=== PATIENT | male | born 1960 | race Caucasian/White ===

== ENCOUNTER 2020-06-28 16:03 | Emergency (ER) | payer OTHER ==
--- NOTE | 2020-06-28 16:32 | ED ---
General Adult HPI - General Stated complaint: Vomiting/Confusion Time Seen by Provider: 06/28/20 16:17 Source: RN notes reviewed, old records reviewed - History of Present Illness Initial comments: 51-year-old male history of alcoholism recently new to the area who drove from [place] on Wednesday. He presents the ER today via EMS for complaints of confusion and vomiting. Patient whose sister called EMS for his complaints. When EMS arrived with an IV and the Patient and he stated that he did not need to be here months ago. Patient reports that he drinks proximally pint today. Patient denies any abdominal pain or other complaints. Denies any falls. Patient is alert and oriented 3. Review of Systems ROS Statement: Those systems with pertinent positive or pertinent negative responses have been documented in the HPI. ROS Other: All systems not noted in ROS Statement are negative. General Exam - General Exam Comments Initial Comments: Alert and oriented 59-year-old male. No acute distress. Patient is somewhat hostile. General appearance: alert, in no apparent distress Head exam: Present: atraumatic, normocephalic, normal inspection Eye exam: Present: normal appearance, PERRL, EOMI. Absent: scleral icterus, conjunctival injection, periorbital swelling ENT exam: Present: normal exam Neck exam: Present: normal inspection. Absent: tenderness, meningismus, lymphadenopathy Respiratory exam: Present: normal lung sounds bilaterally. Absent: respiratory distress, wheezes, rales, rhonchi, stridor Cardiovascular Exam: Present: regular rate, normal rhythm, normal heart sounds. Absent: systolic murmur, diastolic murmur, rubs, gallop, clicks GI/Abdominal exam: Present: soft, normal bowel sounds. Absent: distended, tenderness, guarding, rebound, rigid Extremities exam: Present: normal inspection, full ROM, normal capillary refill. Absent: tenderness, pedal edema, joint swelling, calf tenderness Back exam: Present: normal inspection Neurological exam: Present: alert, oriented X3, CN II-XII intact Psychiatric exam: Present: normal affect, normal mood Skin exam: Present: warm, dry, intact, normal color. Absent: rash Medical Decision Making - Medical Decision Making 51-year-old male presented via EMS for concern for nausea vomiting and episodes of confusion. This time Patient has no signs of neurological deficits alert and oriented 3. Able to ambulate straight line. He states he does not need to be here and anxious to be discharged. Patient was advised that he will be leaving AGAINST MEDICAL ADVICE. Meeting that he does not have any lab testing or evaluation for his suspenders symptoms that EMS brought him here. He states he otherwise feels well and wants to go home. Patient left and ripped his IV out and moods didn't know that he was given a leave AGAINST MEDICAL ADVICE and accepts the risk. Disposition Clinical Impression: Vomiting, History of ETOH abuse Disposition: Left Against Medical Advice Condition: Good Instructions (If sedation given, give patient instructions): Abuse of Alcohol (ED), Acute Nausea and Vomiting (ED) Additional Instructions: You are leaving AGAINST MEDICAL ADVICE and take the risk of worsening condition or even due to condition. Patient should stop drinking. Return to ER if any alarming signs or symptoms occur. Is patient prescribed a controlled substance at d/c from ED?: No Referrals: Nonstaff,Physician [Primary Care Provider] - 1-2 days Time of Disposition: 16:30
== END 2020-06-28 16:30 | disposition left against medical advice (07) ==
LOC: EC 16:03
DX: R11.10 Vomiting, unspecified (principal); F10.11 Alcohol abuse, in remission; F17.200 Nicotine dependence, unspecified, uncomplicated; Z53.29 Procedure and treatment not carried out because of patient's decision for other reasons
CPT/HCPCS: 99285

== ENCOUNTER 2020-06-30 16:10 | Emergency (ER) | payer OTHER ==
[2020-06-30 16:17] VITALS: TEMP 98
[2020-06-30] MEDS ORDERED: SODIUM CHLORIDE 0.9% 1,000 ML IV STA (16:45)
[2020-06-30 17:01] LABS: Basophils # (A) 0.1 k/uL (0-0.2); Basophils % (A) 1 %; Eosinophils # (A) 0.1 k/uL (0-0.7); Eosinophils % (A) 2 %; HCT 37.3 % (39.0-53.0); HGB 12.1 gm/dL (13.0-17.5); Lymphocytes # (A) 1.5 k/uL (1.0-4.8); Lymphocytes % (A) 26 %; MCH 32.2 pg (25.0-35.0); MCHC 32.5 g/dL (31.0-37.0); MCV 99.1 fL (80.0-100.0); Mean Platelet Volume 6.9; Monocytes # (A) 0.3 k/uL (0-1.0); Monocytes % (A) 5 %; Neutrophils # (A) 3.6 k/uL (1.3-7.7); Neutrophils % (A) 64 %; Platelet Count 348 k/uL (150-450); RBC 3.76 m/uL (4.30-5.90); RDW 13.5 % (11.5-15.5); WBC 5.6 k/uL (3.8-10.6)
[2020-06-30 17:13] LABS: ALT 66 U/L (4-49); AST 166 U/L (17-59); African American GFR (CKD) >90 (>60 ml/min/1.73 sqM); Albumin 3.4 g/dL (3.5-5.0); Alkaline Phosphatase 303 U/L (38-126); Anion Gap 8 mmol/L; Blood Urea Nitrogen 6 mg/dL (9-20); Carbon Dioxide 25 mmol/L (22-30); Chloride 112 mmol/L (98-107); Glucose 124 mg/dL (74-99); Lipase 164 U/L (23-300); Magnesium 1.6 mg/dL (1.6-2.3); Non-African American GFR(CKD) >90 (>60 ml/min/1.73 sqM); Phosphorus 4.8 mg/dL (2.5-4.5); Potassium 3.6 mmol/L (3.5-5.1); Sodium 145 mmol/L (137-145); Total Bilirubin 0.3 mg/dL (0.2-1.3); Total Protein 6.9 g/dL (6.3-8.2)
[2020-06-30 17:25] LABS: Alcohol 299 mg/dL
--- NOTE | 2020-06-30 18:36 | ED ---
General Adult HPI - General Chief complaint: Abdominal Pain Stated complaint: weakness-revisit Time Seen by Provider: 06/30/20 16:20 Source: patient, RN notes reviewed, old records reviewed Mode of arrival: wheelchair Limitations: no limitations - History of Present Illness Initial comments: 59-year-old male patient ED for evaluation. Before these been feeling some generalized weakness for the last 6 weeks. Reports alcohol usage. Denies any other complaints. Denies any falls or trauma. Systemic: Pt denies fatigue, fever/chills, rash. Pt denies weakness, night sweats, weight loss. Neuro: Pt denies headache, visual disturbances, syncope or pre-syncope. HEENT: Pt denies ocular discharge or irritation, otalgia, rhinorrhea, pharyngi tis or notable lymphadenopathy. Cardiopulmonary: Pt denies chest pain, SOB, heart palpitations, dyspnea on exertion. Abdominal/GI: Pt denies abdominal pain, n/v/d. : Pt denies dysuria, burning w/ urination, frequency/urgency. Denies new onset urinary or bowel incontinence. MSK: Pt denies myalgia, loss of strength or function in extremities. Neuro: Pt denies new onset weakness, paresthesias. - Related Data Allergies Allergy/AdvReac Type Severity Reaction Status Date / Time No Known Allergies Allergy Verified 06/30/20 16:17 Review of Systems ROS Statement: Those systems with pertinent positive or pertinent negative responses have been documented in the HPI. ROS Other: All systems not noted in ROS Statement are negative. Past Medical History Past Medical History: Hypertension History of Any Multi-Drug Resistant Organisms: Unobtainable Past Surgical History: Unable to Obtain Additional Past Surgical History / Comment(s): vasectomy Past Psychological History: Unable to Obtain Smoking Status: Current every day smoker Past Alcohol Use History: Daily, Heavy Past Drug Use History: None Reported General Exam - General Exam Comments Initial Comments: Constitutional: NAD, AOX3, Pt has pleasant affect. HEENT: NC/AT, trachea midline, neck supple, no lymphadenopathy. External ears appear normal, without discharge. Mucous membranes moist. Eyes PERRLA, EOM in tact. There is no scleral icterus. No pallor noted. Cardiopulmonary: RRR, no murmurs, rubs or gallops, no JVD noted. Lungs CTAB in anterior and posterior justin. No peripheral edema. Abdominal exam: Abdomen soft and non-distended. Abdomen non-tender to palpation in all 4 quadrants. Bowel sounds active in LLQ. No hepatosplenomegaly. No ecchymosis Neuro: CN II-XII grossly intact. No nuchal rigidity. No raccon eyes, no bazzi sign, no hemotympanum. No cervical spinal tenderness. MSK: . Full active ROM in upper and lower extremities, 5/5 stregnth. Limitations: no limitations Course Vital Signs 06/30/20 06/30/20 16:13 18:36 Temperature 98.0 F Pulse Rate 94 96 Respiratory 20 18 Rate Blood Pressure 126/70 130/88 O2 Sat by Pulse 98 96 Oximetry Medical Decision Making - Medical Decision Making 59-year-old male patient ED for evaluation generalized weakness. Vital signs are stable, afebrile. Physical exam negative for acute pathology. Laboratory investigations revealed elevated serum alcohol 299. AST to ALT increased. After short stay in emergency department patient became irate demanding to leave. as patient is intoxicated we indicated that he had to have a friend or relative come pick him up. Patient was recently emergency department 2 days ago for similar complaints and signed out AGAINST MEDICAL ADVICE at that time. Patient is alert and oriented 3 and able to ambulate without difficulty. Friend confirm that he will transportation home to a save location. Patient will discharge AGAINST MEDICAL ADVICE. Case discussed and pt seen by Dr. Mendoza. - Lab Data Result diagrams: 06/30/20 16:52 06/30/20 16:52 Lab Results 06/30/20 06/30/20 Range/Units 16:52 16:52 WBC 5.6 (3.8-10.6) k/uL RBC 3.76 L (4.30-5.90) m/uL Hgb 12.1 L (13.0-17.5) gm/dL Hct 37.3 L (39.0-53.0) % MCV 99.1 (80.0-100.0) fL MCH 32.2 (25.0-35.0) pg MCHC 32.5 (31.0-37.0) g/dL RDW 13.5 (11.5-15.5) % Plt Count 348 (150-450) k/uL MPV 6.9 Neutrophils % 64 % Lymphocytes % 26 % Monocytes % 5 % Eosinophils % 2 % Basophils % 1 % Neutrophils # 3.6 (1.3-7.7) k/uL Lymphocytes # 1.5 (1.0-4.8) k/uL Monocytes # 0.3 (0-1.0) k/uL Eosinophils # 0.1 (0-0.7) k/uL Basophils # 0.1 (0-0.2) k/uL Sodium 145 (137-145) mmol/L Potassium 3.6 (3.5-5.1) mmol/L Chloride 112 H (98-107) mmol/L Carbon Dioxide 25 (22-30) mmol/L Anion Gap 8 mmol/L BUN 6 L (9-20) mg/dL Creatinine 0.85 (0.66-1.25) mg/dL Est GFR (CKD-EPI)AfAm >90 (>60 ml/min/1.73 sqM) Est GFR (CKD-EPI)NonAf >90 (>60 ml/min/1.73 sqM) Glucose 124 H (74-99) mg/dL Calcium 8.0 L (8.4-10.2) mg/dL Phosphorus 4.8 H (2.5-4.5) mg/dL Magnesium 1.6 (1.6-2.3) mg/dL Total Bilirubin 0.3 (0.2-1.3) mg/dL AST 166 H (17-59) U/L ALT 66 H (4-49) U/L Alkaline Phosphatase 303 H (38-126) U/L Total Protein 6.9 (6.3-8.2) g/dL Albumin 3.4 L (3.5-5.0) g/dL Lipase 164 (23-300) U/L Serum Alcohol 299 H* mg/dL Disposition Clinical Impression: Alcohol intoxication Disposition: Left Against Medical Advice Condition: Undetermined Additional Instructions: Recommend stop drinking alcohol and avoiding substance abuse. Follow up with PCP tomorrow. Is patient prescribed a controlled substance at d/c from ED?: No Referrals: Nonstaff,Physician [Primary Care Provider] - 1-2 days Gianni Blanco MD [REFERRING] - 1-2 days Maykel Long [STAFF PHYSICIAN] - 1-2 days
[2020-06-30 18:37] VITALS: BP 130/88; PULSE 96; RESP 18
== END 2020-06-30 18:42 | disposition left against medical advice (07) ==
LOC: EC 16:10
DX: F10.129 Alcohol abuse with intoxication, unspecified (principal); Z53.29 Procedure and treatment not carried out because of patient's decision for other reasons; I10 Essential (primary) hypertension; F17.200 Nicotine dependence, unspecified, uncomplicated
CPT/HCPCS: 80053; 80320; 83690; 83735; 84100; 85025; 96360; 99284

== ENCOUNTER 2020-08-02 09:17 | Inpatient (IN) | payer OTHER ==
[2020-08-02] MEDS ORDERED: ONDANSETRON 4 MG/2 ML VIAL IVP STA (09:50)
[2020-08-02] MEDS ORDERED: SODIUM CHLORIDE 0.9% 1,000 ML IV STA (09:50)
[2020-08-02] MEDS ORDERED: cloNIDine HCL 0.2 MG TAB PO STA (09:54)
--- NOTE | 2020-08-02 10:07 | ED ---
Psych HPI - General Chief Complaint: Psychiatric Symptoms Stated Complaint: Suicidal Time Seen by Provider: 08/02/20 09:31 Source: patient Mode of arrival: ambulatory - History of Present Illness Initial Comments: Patient is a 59-year-old male presenting to the emergency Department with complaints of suicidal deviation. Patient states that over the past few weeks he was experiencing nausea, vomiting and diarrhea. Patient denies any pain at this time, he states he does not feel nauseous or have had any vomiting over the past 3 days. He complains that if he had "a bunch of pills he would've taken them", he also told triage nurse that "if he found a gun he would shoot him self." He states he is living at his parent's house, they are both . He has no further trauma house, has been sleeping in the air mattress. He states he is also take blood pressure medications but states he ran out and has not been taking them. He also admits to drinking alcohol nightly, his last drink was last night. Denies any other drug use. He denies any chest pain, no shortness of breath. No recent fever or chills. He has no further complaints at this time. Upon arrival to the ER, his blood pressure is 212/109, rest of vitals are normal. - Related Data Home Medications Medication Instructions Recorded Confirmed No Known Home Medications 08/02/20 08/02/20 Allergies Allergy/AdvReac Type Severity Reaction Status Date / Time No Known Allergies Allergy Verified 08/02/20 11:00 Review of Systems ROS Statement: Those systems with pertinent positive or pertinent negative responses have been documented in the HPI. ROS Other: All systems not noted in ROS Statement are negative. Past Medical History Past Medical History: Hypertension Additional Past Medical History / Comment(s): non-compliant with bp pills History of Any Multi-Drug Resistant Organisms: Unobtainable Past Surgical History: Unable to Obtain Additional Past Surgical History / Comment(s): vasectomy Past Psychological History: Unable to Obtain Smoking Status: Current every day smoker Past Alcohol Use History: Daily, Heavy Past Drug Use History: Marijuana General Exam - General Exam Comments Initial Comments: GENERAL: Patient is well-developed and well-nourished. Patient is nontoxic and in no acute distress. HEAD: Atraumatic, normocephalic. EYES: Pupils equal round and reactive to light, extraocular movements intact, sclera anicteric, conjunctiva are normal. Eyelids were unremarkable. ENT: TMs normal, nares patent, oropharynx clear without exudates. Moist mucous membranes. NECK: Normal range of motion, supple without lymphadenopathy or JVD. LUNGS: Unlabored respirations. Breath sounds clear to auscultation bilaterally and equal. No wheezes rales or rhonchi. HEART: Regular rate and rhythm without murmurs, rubs or gallops. ABDOMEN: Soft, nontender, normoactive bowel sounds. No guarding, no rebound. No masses appreciated. : Deferred MUSCULOSKELETAL: Normal extremities with adequate strength and normal range of motion, no pitting or edema. No clubbing or cyanosis. NEUROLOGICAL: Patient is alert and oriented x 3. Motor and sensory are also intact. Cranial nerves II through XII grossly intact. Symmetrical smile. Normal speech, normal gait. PSYCH: Normal mood, normal affect. SKIN: Warm, Dry, normal turgor, no rashes or lesions noted. Limitations: no limitations Course Vital Signs 08/02/20 08/02/20 09:20 12:50 Temperature 98.0 F Pulse Rate 105 H 96 Respiratory 18 18 Rate Blood Pressure 212/109 158/91 O2 Sat by Pulse 99 98 Oximetry Medical Decision Making - Medical Decision Making Patient is a 59-year-old male here for suicidal ideations as well as nausea and vomiting over the past couple weeks. Patient is hypertensive on arrival, rest of vital signs are normal. He states he stopped taking his blood pressure medication. Patient's labs show potassium 3.1, creatinine 0.61, liver enzymes a re slightly bumped. Urine is normal, tox screen is positive for methadone and phentermine's, serum alcohol was 96. Patient was evaluated by EPS. Positive suicidal plans. Patient will be admitted to the psych unit. We will start him back on his blood pressure medication. Patient was given fluids for dehydration. - Lab Data Result diagrams: 08/02/20 10:05 08/02/20 10:05 Lab Results 08/02/20 08/02/20 08/02/20 Range/Units 10:05 10:05 10:53 WBC 7.0 (3.8-10.6) k/uL RBC 3.62 L (4.30-5.90) m/uL Hgb 11.7 L (13.0-17.5) gm/dL Hct 35.1 L (39.0-53.0) % MCV 97.0 (80.0-100.0) fL MCH 32.4 (25.0-35.0) pg MCHC 33.4 (31.0-37.0) g/dL RDW 12.7 (11.5-15.5) % Plt Count 209 (150-450) k/uL MPV 7.7 Neutrophils % 73 % Lymphocytes % 15 % Monocytes % 7 % Eosinophils % 2 % Basophils % 1 % Neutrophils # 5.1 (1.3-7.7) k/uL Lymphocytes # 1.1 (1.0-4.8) k/uL Monocytes # 0.5 (0-1.0) k/uL Eosinophils # 0.2 (0-0.7) k/uL Basophils # 0.1 (0-0.2) k/uL Sodium 137 (137-145) mmol/L Potassium 3.1 L (3.5-5.1) mmol/L Chloride 101 (98-107) mmol/L Carbon Dioxide 27 (22-30) mmol/L Anion Gap 9 mmol/L BUN 6 L (9-20) mg/dL Creatinine 0.61 L (0.66-1.25) mg/dL Est GFR (CKD-EPI)AfAm >90 (>60 ml/min/1.73 sqM) Est GFR (CKD-EPI)NonAf >90 (>60 ml/min/1.73 sqM) Glucose 110 H (74-99) mg/dL Calcium 8.2 L (8.4-10.2) mg/dL Total Bilirubin 0.7 (0.2-1.3) mg/dL AST 110 H (17-59) U/L ALT 58 H (4-49) U/L Alkaline Phosphatase 256 H (38-126) U/L Total Protein 7.1 (6.3-8.2) g/dL Albumin 3.6 (3.5-5.0) g/dL Urine Color Light Yellow Urine Appearance Clear (Clear) Urine pH 6.0 (5.0-8.0) Ur Specific [place] 1.003 (1.001-1.035) Urine Protein Negative (Negative) Urine Glucose (UA) Negative (Negative) Urine Ketones Negative (Negative) Urine Blood Negative (Negative) Urine Nitrite Negative (Negative) Urine Bilirubin Negative (Negative) Urine Urobilinogen <2.0 (<2.0) mg/dL Ur Leukocyte Esterase Negative (Negative) Urine Opiates Screen (NotDetected) Ur Oxycodone Screen (NotDetected) Urine Methadone Screen (NotDetected) Ur Propoxyphene Screen (NotDetected) Ur Barbiturates Screen (NotDetected) U Tricyclic Antidepress (NotDetected) Ur Phencyclidine Scrn (NotDetected) Ur Amphetamines Screen (NotDetected) U Methamphetamines Scrn (NotDetected) U Benzodiazepines Scrn (NotDetected) Urine Cocaine Screen (NotDetected) U Marijuana (THC) Screen (NotDetected) Serum Alcohol 96 mg/dL 08/02/20 Range/Units 10:53 WBC (3.8-10.6) k/uL RBC (4.30-5.90) m/uL Hgb (13.0-17.5) gm/dL Hct (39.0-53.0) % MCV (80.0-100.0) fL MCH (25.0-35.0) pg MCHC (31.0-37.0) g/dL RDW (11.5-15.5) % Plt Count (150-450) k/uL MPV Neutrophils % % Lymphocytes % % Monocytes % % Eosinophils % % Basophils % % Neutrophils # (1.3-7.7) k/uL Lymphocytes # (1.0-4.8) k/uL Monocytes # (0-1.0) k/uL Eosinophils # (0-0.7) k/uL Basophils # (0-0.2) k/uL Sodium (137-145) mmol/L Potassium (3.5-5.1) mmol/L Chloride (98-107) mmol/L Carbon Dioxide (22-30) mmol/L Anion Gap mmol/L BUN (9-20) mg/dL Creatinine (0.66-1.25) mg/dL Est GFR (CKD-EPI)AfAm (>60 ml/min/1.73 sqM) Est GFR (CKD-EPI)NonAf (>60 ml/min/1.73 sqM) Glucose (74-99) mg/dL Calcium (8.4-10.2) mg/dL Total Bilirubin (0.2-1.3) mg/dL AST (17-59) U/L ALT (4-49) U/L Alkaline Phosphatase (38-126) U/L Total Protein (6.3-8.2) g/dL Albumin (3.5-5.0) g/dL Urine Color Urine Appearance (Clear) Urine pH (5.0-8.0) Ur Specific [place] (1.001-1.035) Urine Protein (Negative) Urine Glucose (UA) (Negative) Urine Ketones (Negative) Urine Blood (Negative) Urine Nitrite (Negative) Urine Bilirubin (Negative) Urine Urobilinogen (<2.0) mg/dL Ur Leukocyte Esterase (Negative) Urine Opiates Screen Not Detected (NotDetected) Ur Oxycodone Screen Not Detected (NotDetected) Urine Methadone Screen Detected H (NotDetected) Ur Propoxyphene Screen Not Detected (NotDetected) Ur Barbiturates Screen Not Detected (NotDetected) U Tricyclic Antidepress Not Detected (NotDetected) Ur Phencyclidine Scrn Not Detected (NotDetected) Ur Amphetamines Screen Detected H (NotDetected) U Methamphetamines Scrn Not Detected (NotDetected) U Benzodiazepines Scrn Not Detected (NotDetected) Urine Cocaine Screen Not Detected (NotDetected) U Marijuana (THC) Screen Not Detected (NotDetected) Serum Alcohol mg/dL Disposition Clinical Impression: Suicidal ideation, Dehydration Disposition: TRANSFER TO PSYCH HOSP/UNIT Condition: Stable Referrals: None,Stated [Primary Care Provider] - 1-2 days Decision Date: 08/02/20 Decision Time: 13:25
[2020-08-02 10:12] LABS: Basophils # (A) 0.1 k/uL (0-0.2); Basophils % (A) 1 %; Eosinophils # (A) 0.2 k/uL (0-0.7); Eosinophils % (A) 2 %; HCT 35.1 % (39.0-53.0); HGB 11.7 gm/dL (13.0-17.5); Lymphocytes # (A) 1.1 k/uL (1.0-4.8); Lymphocytes % (A) 15 %; MCH 32.4 pg (25.0-35.0); MCHC 33.4 g/dL (31.0-37.0); Mean Platelet Volume 7.7; Monocytes # (A) 0.5 k/uL (0-1.0); Monocytes % (A) 7 %; Neutrophils # (A) 5.1 k/uL (1.3-7.7); Neutrophils % (A) 73 %; Platelet Count 209 k/uL (150-450); RBC 3.62 m/uL (4.30-5.90); RDW 12.7 % (11.5-15.5)
[2020-08-02] MEDS ORDERED: LORazepam 2 MG/ML INJ IV STA (10:19)
[2020-08-02 10:37] LABS: ALT 58 U/L (4-49); AST 110 U/L (17-59); African American GFR (CKD) >90 (>60 ml/min/1.73 sqM); Albumin 3.6 g/dL (3.5-5.0); Alkaline Phosphatase 256 U/L (38-126); Anion Gap 9 mmol/L; Blood Urea Nitrogen 6 mg/dL (9-20); Calcium 8.2 mg/dL (8.4-10.2); Carbon Dioxide 27 mmol/L (22-30); Chloride 101 mmol/L (98-107); Glucose 110 mg/dL (74-99); Non-African American GFR(CKD) >90 (>60 ml/min/1.73 sqM); Potassium 3.1 mmol/L (3.5-5.1); Sodium 137 mmol/L (137-145); Total Bilirubin 0.7 mg/dL (0.2-1.3); Total Protein 7.1 g/dL (6.3-8.2)
[2020-08-02 10:52] LABS: Alcohol 96 mg/dL
[2020-08-02 11:06] LABS: Appearance,Urine Clear (Clear); Bilirubin,Urine Negative (Negative); Blood,Urine Negative (Negative); Color,Urine Light Yellow; Glucose,Urine (UA) Negative (Negative); Ketones,Urine Negative (Negative); Leukocyte Esterase,Urine Negative (Negative); Nitrite,Urine Negative (Negative); Protein,Urine Negative (Negative); Specific Gravity,Urine 1.003 (1.001-1.035); Urobilinogen,Urine <2.0 mg/dL (<2.0)
[2020-08-02 11:24] LABS: Barbiturate Screen,Urine Not Detected (NotDetected); Benzodiazepines Screen,Urine Not Detected (NotDetected); Cocaine Screen,Urine Not Detected (NotDetected); Methadone Screen, Urine Detected (NotDetected); Opiate Screen,Urine Not Detected (NotDetected); Oxycodone Screen, Urine Not Detected (NotDetected); Phencyclidine Screen,Urine Not Detected (NotDetected); Tricyclic Antidepressant,Urine Not Detected (NotDetected); Urn Cannabinoid Scrn Not Detected (NotDetected)
[2020-08-02 11:25] LABS: Amphetamine Screen,Urine Detected (NotDetected)
[2020-08-02] MEDS ORDERED: MAGNESIUM HYDROXIDE 2,400 MG/10 ML CUP PO PRN (14:17)
[2020-08-02] MEDS ORDERED: MAG HYDROX/AL HYDROX/SIMETH 30 ML CUP PO PRN (14:17)
[2020-08-02] MEDS ORDERED: HALOPERIDOL LACTATE 5 MG/ML 1 ML VIAL IM PRN (14:21)
[2020-08-02] MEDS ORDERED: PNEUMOCOCCAL VACC-PNEUMOVAX 23 25 MCG/0.5 ML VIAL IM ONE (15:56)
[2020-08-02] MEDS ORDERED: INFLUENZA VACCINE (6 MOS+) 60 MCG/0.5 ML SYRINGE IM ONE (15:57)
[2020-08-02] MEDS: LORazepam 1 MG TAB PO PRN (16:05)
[2020-08-02] MEDS: LORazepam 2 MG/ML INJ IM PRN (22:09)
[2020-08-03] MEDS ORDERED: POTASSIUM CHLORIDE ER 20 MEQ TAB.ER PO STA (01:07)
--- NOTE | 2020-08-03 01:09 | P.CONS ---
History of Present Illness - Reason for Consult Consult date: 08/03/20 - History of Present Illness Patient is a 59-year-old male with a PMH of EtOH abuse and tobacco abuse who presented to the emergency room with complaints of depression and suicidal ideation. The patient was admitted for mental health unit where he was seen and evaluated. Patient notes that he has been feeling down about his life due to his financial situation. He notes feeling somewhat better since his admission into the mental health unit. Reports drinking 1 to 2 pints of liquor daily, with no clear preference. Denied active complaints at the time of interview. He denied chest discomfort, shortness of breath, fever, chills, cough, nausea, vomiting, abdominal pain. Denied history of alcohol withdrawal seizures or admission into the hospital for alcohol withdrawal. He underwent an extensive evaluation in the emergency room which was all reviewed. Urine toxicology was positive for amphetamines and methadone. Laboratory evaluation was also remarkable for an AST of 110, ALT 58, alk phos 256, potassium 3.1, BUN 6, creatinine 0.61, glucose 110. Review of Systems Pertinent positives and negatives as discussed in HPI, a complete review of systems was performed and all other systems are negative. Past Medical History Past Medical History: Hypertension Additional Past Medical History / Comment(s): non-compliant with bp pills History of Any Multi-Drug Resistant Organisms: None Reported Past Surgical History: Unable to Obtain Additional Past Surgical History / Comment(s): vasectomy Past Psychological History: Depression Smoking Status: Current every day smoker Past Alcohol Use History: Daily, Heavy Past Drug Use History: Marijuana Medications and Allergies Home Medications Medication Instructions Recorded Confirmed Type No Known Home Medications 08/02/20 08/02/20 History Allergies Allergy/AdvReac Type Severity Reaction Status Date / Time No Known Allergies Allergy Verified 08/02/20 11:00 Physical Exam Vitals: Vital Signs Temp Pulse Pulse Pulse Resp BP BP 08/02/20 16:06 98.7 F 98 16 140/89 08/02/20 14:50 99.2 F 93 16 08/02/20 12:50 96 18 158/91 08/02/20 09:20 98.0 F 105 H 18 212/109 BP Pulse Ox 08/02/20 16:06 08/02/20 14:50 154/78 95 08/02/20 12:50 98 08/02/20 09:20 99 Intake and Output 08/02/20 08/02/20 08/03/20 14:59 22:59 06:59 Other: Weight 72.575 kg 72.575 kg General: non toxic, no distress, appears at stated age, normal weight Derm: no unusual rashes/lesions no unusual ecchymoses, warm, dry Head: atraumatic, normocephalic, symmetric Eyes: EOMI, no lid lag, anicteric sclera, pupils equal round reactive to light ENT: Nose and ears atraumatic, no thrush, no pharyngeal erythema Neck: No thyromegaly, no cervical lymphadenopathy, trachea midline, supple Mouth: no lip lesion, mucus membranes moist Cardiovascular: S1S2 reg, no murmur, positive posterior tibial pulse bilateral, no edema, capillary refill less than 2 seconds Lungs: CTA bilateral, no rhonchi, no rales , no accessory muscle use Abdominal: soft, nontender to palpation, no guarding, no appreciable organomegaly, normal bowel sounds Ext: no gross muscle atrophy, muscle strength 5 out of 5 in all 4 extremities grossly, no contractures, Neuro: CN II-XI grossly intact, light touch intact all 4 extremities, finger to nose within normal limits, Psych: Alert, oriented, appropriate affect Results CBC & Chem 7: 08/02/20 10:05 08/02/20 10:05 Labs: Abnormal Lab Results - Last 24 Hours (Table) 08/02/20 08/02/20 08/02/20 Range/Units 10:05 10:05 10:53 RBC 3.62 L (4.30-5.90) m/uL Hgb 11.7 L (13.0-17.5) gm/dL Hct 35.1 L (39.0-53.0) % Potassium 3.1 L (3.5-5.1) mmol/L BUN 6 L (9-20) mg/dL Creatinine 0.61 L (0.66-1.25) mg/dL Glucose 110 H (74-99) mg/dL Calcium 8.2 L (8.4-10.2) mg/dL AST 110 H (17-59) U/L ALT 58 H (4-49) U/L Alkaline Phosphatase 256 H (38-126) U/L Urine Methadone Screen Detected H (NotDetected) Ur Amphetamines Screen Detected H (NotDetected) Assessment and Plan Plan: EtOH abuse -Advised on the importance of cessation -Monitor for withdrawal -Thiamine, folate, multivitamin -Ativan when necessary for now Hypokalemia -Replace and monitor Abnormal LFTs -Likely secondary to EtOH abuse -Continue to monitor Polysubstance abuse -Strongly advised on the importance of cessation Normocytic anemia -Likely due to ongoing EtOH abuse Thank you for allowing us to participate in the care of this patient. We will follow peripherally. Do not hesitate to contact us with questions. Someone can be reached from the [facility] [place] [facility] [place] hospital[place] group at all hours of the day at [phone].
[2020-08-03] MEDS: LORazepam 2 MG/ML INJ IM PRN (03:24)
[2020-08-03] MEDS: ACETAMINOPHEN TAB 325 MG TAB PO PRN (03:25)
[2020-08-03 07:31] LABS: ALT 50 U/L (4-49); AST 117 U/L (17-59); African American GFR (CKD) >90 (>60 ml/min/1.73 sqM); Albumin 3.1 g/dL (3.5-5.0); Alkaline Phosphatase 244 U/L (38-126); Anion Gap 6 mmol/L; Blood Urea Nitrogen 8 mg/dL (9-20); Calcium 8.8 mg/dL (8.4-10.2); Carbon Dioxide 28 mmol/L (22-30); Chloride 102 mmol/L (98-107); Cholesterol 121 mg/dL (<200); Glucose 79 mg/dL (74-99); HDL Cholesterol 36 mg/dL (40-60); LDL Cholesterol,Calculated 70 mg/dL (0-99); Non-African American GFR(CKD) >90 (>60 ml/min/1.73 sqM); Potassium 4.5 mmol/L (3.5-5.1); Sodium 136 mmol/L (137-145); Total Bilirubin 1.1 mg/dL (0.2-1.3); Total Protein 6.3 g/dL (6.3-8.2); Triglycerides 73 mg/dL (<150)
[2020-08-03] MEDS: NICOTINE 14MG/24HR PATCH TRANSDERM SCH (08:25)
[2020-08-03] MEDS: lisinopriL 20 MG TAB PO SCH (08:25)
[2020-08-03] MEDS: FOLIC ACID 1 MG TAB PO SCH (08:25)
[2020-08-03] MEDS: LORazepam 1 MG TAB PO PRN (08:26)
[2020-08-03] MEDS ORDERED: THIAMINE 100 MG TAB PO SCH (09:00)
[2020-08-03] MEDS ORDERED: NYSTATIN 100,000 UNIT/GM POWD 15 GM TOPICAL SCH (09:45)
[2020-08-03] MEDS ORDERED: PNEUMOCOCCAL VACC-PNEUMOVAX 23 25 MCG/0.5 ML VIAL IM ONE (12:00)
[2020-08-03] MEDS ORDERED: INFLUENZA VACCINE (6 MOS+) 60 MCG/0.5 ML SYRINGE IM ONE (12:00)
[2020-08-03] MEDS ORDERED: THIAMINE 100 MG/ML 2 ML VIAL IM STA (14:43)
[2020-08-03] MEDS: LORazepam 1 MG TAB PO SCH ×3 (15:03→23:25)
[2020-08-03] MEDS: NYSTATIN 100,000UNIT/GM CREAM 30 GM TUBE TOPICAL SCH (15:03)
[2020-08-03 15:55] LABS: Hemoglobin A1C 4.9 % (4.0-6.0)
--- NOTE | 2020-08-03 16:25 | P.HP ---
Psychiatric H&P - . H&P Date: 08/03/20 History & Physical: IDENTIFYING Data: Roberto Carlos Chang is a 59-year-old male who currently lives by himself, self-employed, has psychiatric history of call use disorder, and reports medical history of hypertension. The patient has been admitted to our inpatient psychiatric services after been transferred from [facility]. Patient was initially self referred to ED because of depression and suicidal ideation in context of alcohol intoxication. The patient has been admitted on voluntary basis to our service. CHIEF COMPLAINT: "I want stop alcohol." HISTORY OF PRESENT ILLNESS: Patient reports "I couldn't tolerate drinking too much alcohol", and he stated that has been feeling increasingly depressed with suicidal ideation over the last 1-2 weeks. Reports he started to drink when he was 16 and for the last a few weeks he was drinking every day "as much as I can get" and he reports history of withdrawal symptoms including shakiness and irritability but denies any history of alcohol-related seizures or previous detox treatment. He denies any detail problems related to alcohol drinking. Reports is still feeling depressed but denies any suicidal ideation during evaluation today. Denies sleep or appetite robins. He denies history of depressive episodes or previous treatment for depression or anxiety. Reports that the only psychiatric medications that he was taking his Adderall for ADD. Denies symptoms of consistent unexplained anxiety, overly worried: Panic attacks. Denies any current or previous symptoms of tracey including elevated mood, grandiosity, absence need to sleep due to unusual increase in activities, or impulsive/uninhibited behavior. Denies any current or previous symptoms of psychosis including hallucinations, paranoid ideation, or delusions. No reports of previous suicidal attempts and denies any history of self- injurious behavior by cutting or burning. As per ED report, the patient stated that he had planned to kill himself when presented to the ED either by overdose on pills or to bring a gun and shoot himself, and his blood pressure in ER was 212/109. The patient supposedly to be on hypertension medication but reports couldn't afford the medication and was not taking them. PAST PSYCHIATRIC HISTORY: Denies any previous psychiatric hospitalization or suicidal attempts. No previous outpatient psychiatric treatment and never received counseling or therapy. Only psychiatric medication that he takes Adderall for ADD. SUBSTANCE ABUSE HISTORY: Reports to smoking cigarettes 1 pack daily. Started to drink alcohol since he was 16 and reports history of heavy alcohol drinking for years with average drinking half-gallon every day for the last few months. Denies any legal problems or previous treatment for alcohol use disorder. Denies using other illicit drugs. No previous outpatient or inpatient treatment for alcohol use disorder but reports history of attending AA meetings. Social History: Patient currently lives at his mother's house with his dog. , has 2 grownup children. 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 Completed high school but no college education. Raised by his parents and he denies any history of childhood abuse. Denies any history of developmental problems and reports fair academic performance or during school time. FAMILY HISTORY: Reports his father was diagnosed with manic depression, and his sisters tried to commit suicide. His sister was addicted to drugs and alcohol. MENTAL STATUS EVALUATION: Appearance: Appears stated age, disheveled, partially groomed, average body built, and no specific features. Gait/ posture: Steady gait, normal arm swinging, no abnormal movements, with relaxed posture. Attitude and Behavior: Cooperative, related to the interviewer in socially accepted manner, intermittent eye contact during course of interview. Motor Activity: Increased psychomotor activity. Speech: spontaneous, normal rate, rhythm, and articulation. Normal volume. Not pressured. Language: Articulating, naming objects and repeat phrases. Mood: Depressed, anxious Affect: Constricted. Thought process: Linear, goal-directed. Association: Not tangential, not circumstantial. Thought content: No delusions, denies current suicidal thoughts, denies homicidal thoughts, denies intentions, or plans. Perception: Denies any hallucinations Alertness: No impairment. Concentration: Impaired Orientation: Not fully oriented to time, but oriented to person, place, and situation Insight regarding psychiatric condition: Fair Judgment regarding daily activities and social situation: Fair Impulse control: Fair Strengths: Stable general medical health Housing. Challenges: Limited access to treatment Financial Review of Lab results: Reviewed Assessment: Unspecified depressive disorder. Alcohol use disorder, severe. Rule out alcohol-induced mood disorder. TREATMENT PLAN/RECOMMENDATIONS: Medical Decision making: The patient presented with depression and suicidal ideation with plan. The patient at high risk to hurt himself if he is not in the inpatient setting. The patient's psychiatric symptoms are not stable and he needs further management of psychiatric medications and further planning for discharge. Therefore, inpatient level of care is needed. Continue the patient inpatient for safety. Continue the patient under 15 minutes safe check for safety. Continue treatment of depression symptoms, and alcohol use disorder. Psych education regarding his diagnosis, and treatment option. The patient will also be provided with individual therapy, group therapy, substance abuse counseling, gain insight, and coping skills. Consider medical consultation if any acute medical issue arise. Medications: Ativan taper for alcohol withdrawal symptoms. Trazodone 50 mg at bedtime as needed for insomnia Prognosis is guarded, contingent on patient has been compliant with his medications and has been followed up closely with outpatient mental health provider after discharge. The patient will be assessed on daily basis, and will be discharged back to his outpatient mental health provider upon stabilization. EXPECTED LENGTH OF STAY: 5 days. Allergies Allergy/AdvReac Type Severity Reaction Status Date / Time No Known Allergies Allergy Verified 08/02/20 11:00 Vital Signs Temp 99.0 F 08/03/20 14:50 Pulse 72 08/03/20 14:50 Resp 20 08/03/20 08:29 BP 148/68 08/03/20 14:50 Pulse Ox 98 08/03/20 14:50 Intake & Output 08/02/20 08/03/20 08/03/20 18:59 06:59 18:59 Weight 72.575 kg Laboratory Last Values WBC 7.0 k/uL (3.8-10.6) 08/02/20 10:05 RBC 3.62 m/uL (4.30-5.90) L 08/02/20 10:05 Hgb 11.7 gm/dL (13.0-17.5) L 08/02/20 10:05 Hct 35.1 % (39.0-53.0) L 08/02/20 10:05 MCV 97.0 fL (80.0-100.0) 08/02/20 10:05 MCH 32.4 pg (25.0-35.0) 08/02/20 10:05 MCHC 33.4 g/dL (31.0-37.0) 08/02/20 10:05 RDW 12.7 % (11.5-15.5) 08/02/20 10:05 Plt Count 209 k/uL (150-450) 08/02/20 10:05 MPV 7.7 08/02/20 10:05 Neutrophils % 73 % 08/02/20 10:05 Lymphocytes % 15 % 08/02/20 10:05 Monocytes % 7 % 08/02/20 10:05 Eosinophils % 2 % 08/02/20 10:05 Basophils % 1 % 08/02/20 10:05 Neutrophils # 5.1 k/uL (1.3-7.7) 08/02/20 10:05 Lymphocytes # 1.1 k/uL (1.0-4.8) 08/02/20 10:05 Monocytes # 0.5 k/uL (0-1.0) 08/02/20 10:05 Eosinophils # 0.2 k/uL (0-0.7) 08/02/20 10:05 Basophils # 0.1 k/uL (0-0.2) 08/02/20 10:05 Sodium 136 mmol/L (137-145) L 08/03/20 06:05 Potassium 4.5 mmol/L (3.5-5.1) 08/03/20 06:05 Chloride 102 mmol/L (98-107) 08/03/20 06:05 Carbon Dioxide 28 mmol/L (22-30) 08/03/20 06:05 Anion Gap 6 mmol/L 08/03/20 06:05 BUN 8 mg/dL (9-20) L 08/03/20 06:05 Creatinine 0.57 mg/dL (0.66-1.25) L 08/03/20 06:05 Est GFR (CKD-EPI)AfAm >90 (>60 ml/min/1.73 sqM) 08/03/20 06:05 Est GFR (CKD-EPI)NonAf >90 (>60 ml/min/1.73 sqM) 08/03/20 06:05 Glucose 79 mg/dL (74-99) 08/03/20 06:[address] Glu mg/dL 94 08/03/20 06:05 Hemoglobin A1c 4.9 % (4.0-6.0) 08/03/20 06:05 Calcium 8.8 mg/dL (8.4-10.2) 08/03/20 06:05 Total Bilirubin 1.1 mg/dL (0.2-1.3) 08/03/20 06:05 AST 117 U/L (17-59) H 08/03/20 06:05 ALT 50 U/L (4-49) H 08/03/20 06:05 Alkaline Phosphatase 244 U/L (38-126) H 08/03/20 06:05 Total Protein 6.3 g/dL (6.3-8.2) 08/03/20 06:05 Albumin 3.1 g/dL (3.5-5.0) L 08/03/20 06:05 Triglycerides 73 mg/dL (<150) 08/03/20 06:05 Cholesterol 121 mg/dL (<200) 08/03/20 06:05 LDL Cholesterol, Calc 70 mg/dL (0-99) 08/03/20 06:05 HDL Cholesterol 36 mg/dL (40-60) L 08/03/20 06:05 TSH 1.370 mIU/L (0.465-4.680) 08/03/20 06:05 Urine Color Light Yellow 08/02/20 10:53 Urine Appearance Clear (Clear) 08/02/20 10:53 Urine pH 6.0 (5.0-8.0) 08/02/20 10:53 Ur Specific [place] 1.003 (1.001-1.035) 08/02/20 10:53 Urine Protein Negative (Negative) 08/02/20 10:53 Urine Glucose (UA) Negative (Negative) 08/02/20 10:53 Urine Ketones Negative (Negative) 08/02/20 10:53 Urine Blood Negative (Negative) 08/02/20 10:53 Urine Nitrite Negative (Negative) 08/02/20 10:53 Urine Bilirubin Negative (Negative) 08/02/20 10:53 Urine Urobilinogen <2.0 mg/dL (<2.0) 08/02/20 10:53 Ur Leukocyte Esterase Negative (Negative) 08/02/20 10:53 Urine Opiates Screen Not Detected (NotDetected) 08/02/20 10:53 Ur Oxycodone Screen Not Detected (NotDetected) 08/02/20 10:53 Urine Methadone Screen Detected (NotDetected) H 08/02/20 10:53 Ur Propoxyphene Screen Not Detected (NotDetected) 08/02/20 10:53 Ur Barbiturates Screen Not Detected (NotDetected) 08/02/20 10:53 U Tricyclic Antidepress Not Detected (NotDetected) 08/02/20 10:53 Ur Phencyclidine Scrn Not Detected (NotDetected) 08/02/20 10:53 Ur Amphetamines Screen Detected (NotDetected) H 08/02/20 10:53 U Methamphetamines Scrn Not Detected (NotDetected) 08/02/20 10:53 U Benzodiazepines Scrn Not Detected (NotDetected) 08/02/20 10:53 Urine Cocaine Screen Not Detected (NotDetected) 08/02/20 10:53 U Marijuana (THC) Screen Not Detected (NotDetected) 08/02/20 10:53 Serum Alcohol 96 mg/dL 08/02/20 10:05 Coronavirus (PCR) Not Detected (Not Detectd) 08/02/20 12:50 08/03/20 16:08
[2020-08-03] MEDS: THIAMINE 100 MG TAB PO SCH (18:21)
[2020-08-03] MEDS: traZODone HCL 50 MG TAB PO PRN (20:17)
[2020-08-04] MEDS: NYSTATIN 100,000UNIT/GM CREAM 30 GM TUBE TOPICAL SCH ×4 (00:51→20:49)
[2020-08-04] MEDS ORDERED: haloperidoL 1 MG TAB PO PRN (01:10)
[2020-08-04] MEDS: THIAMINE 100 MG TAB PO SCH ×2 (08:17→17:45)
[2020-08-04] MEDS: lisinopriL 20 MG TAB PO SCH (08:17)
[2020-08-04] MEDS: NICOTINE 14MG/24HR PATCH TRANSDERM SCH (08:17)
[2020-08-04] MEDS: LORazepam 1 MG TAB PO SCH ×3 (08:17→20:48)
[2020-08-04] MEDS: FOLIC ACID 1 MG TAB PO SCH (08:17)
--- NOTE | 2020-08-04 14:01 | P.PN ---
Progress Note - Text Progress Note Date: 08/04/20 Subjective: Patient was seen today as a cross coverage for Dr. Garcia. The patient was evaluated, chart reviewed, case discussed with the treatment team. Patient reports good sleep last night, and appetite was reported as "fair ". Patient has not been going to groups and other unit activities. The patient is compliant with his medications and denies any adverse reactions. Patient presents very irritable about being hospitalized and he requested discharge. He denies feeli ng depressed, hopeless, and he denies any suicidal or homicidal ideation. Denies any hallucinations, paranoid ideation, delusions and no reports of manic symptoms. Patient presents to some degree confused and as per nursing report he has difficulty to get back to his room because of confusion. Patient was not fully oriented to time. He denies alcohol withdrawal symptoms and he didn't present with any shakiness or GI symptoms. Generally, the patient was very superficial in his answers and fixated on discharge. Patient submitted 72 hour notice for discharge. Objective: Vitals has been reviewed. Mental status examination; Appearance: Appears stated age, disheveled, partially groomed, average body built, and no specific features. Gait/ posture: Steady gait, normal arm swinging, no abnormal movements, with relaxed posture. Attitude and Behavior: Cooperative, related to the interviewer in socially accepted manner, intermittent eye contact during course of interview. Motor Activity: Increased psychomotor activity. Speech: spontaneous, normal rate, rhythm, and articulation. Normal volume. Not pressured. Mood: anxious Affect: Constricted. Thought process: Linear, goal-directed. Association: Not tangential, not circumstantial. Thought content: No delusions, denies current suicidal thoughts, denies homicidal thoughts, denies intentions, or plans. Perception: Denies any hallucinations Alertness: No impairment. Concentration: Impaired Orientation: Not fully oriented to time, but oriented to person, place, and situation Insight regarding psychiatric condition: Fair Judgment regarding daily activities and social situation: Fair Impulse control: Fair Assessment: Assessment: Unspecified depressive disorder. Alcohol use disorder, severe. Rule out alcohol-induced mood disorder. Plan: Continue inpatient level of care due to need for further stabilization and monitoring Precautions: Continue 15 minutes check for safety. Consider medical consultation if any acute medical issues arise. Provide the patient individual, group therapy, substance use disorder counseling to give better insight and learn coping skills. Medications: Ativan taper for alcohol withdrawal symptoms. Trazodone 50 mg at bedtime as needed for insomnia Continue as needed medications for psychiatric emergencies including psychosis, agitation and anxiety. Continue non-psychiatric medications for medical conditions as recommended by the medical team. Discharge patient to OUTPATIENT services upon a stabilization
[2020-08-04] MEDS: LORazepam 1 MG TAB PO PRN (18:11)
[2020-08-04] MEDS: traZODone HCL 50 MG TAB PO PRN (20:48)
[2020-08-04] MEDS: ACETAMINOPHEN TAB 325 MG TAB PO PRN (20:48)
[2020-08-05] MEDS: LORazepam 1 MG TAB PO PRN (02:15)
[2020-08-05 02:17] VITALS: RESP 16
[2020-08-05] MEDS: FOLIC ACID 1 MG TAB PO SCH (08:11)
[2020-08-05] MEDS: lisinopriL 20 MG TAB PO SCH (08:11)
[2020-08-05] MEDS: THIAMINE 100 MG TAB PO SCH (08:11)
[2020-08-05] MEDS: NICOTINE 14MG/24HR PATCH TRANSDERM SCH (08:12)
[2020-08-05] MEDS: NYSTATIN 100,000UNIT/GM CREAM 30 GM TUBE TOPICAL SCH (08:12)
[2020-08-05 08:27] VITALS: BP 145/92; PULSE 101
[2020-08-05] MEDS ORDERED: LORazepam 1 MG TAB PO SCH (09:00)
--- NOTE | 2020-08-05 12:50 | P.DS ---
Providers Date of admission: 08/02/20 14:13 Expected date of discharge: 08/05/20 Attending physician: Tavares Garcia MD Consults: 08/02/20 14:17 Consult Physician Routine Consulting Provider: Paulina Najera Consult Reason/Comments: medical management Do you want consulting provider notified?: Yes Primary care physician: Stated None - Discharge Diagnosis(es) (1) Major depressive disorder, recurrent, unspecified Current Visit: Yes Status: Acute Priority: High (2) Alcohol use disorder Current Visit: Yes Status: Chronic Priority: Medium Hospital Course: Admission HPI: Initial psychiatric evaluation was completed by Dr. 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 The patient has been admitted to our inpatient psychiatric services after been transferred from [facility]. Patient was initially self referred to ED because of depression and suicidal ideation in context of alcohol intoxication. The patient has been admitted on voluntary basis to our service. "I want to stop alcohol." Patient reports "I couldn't tolerate drinking too much alcohol", and he stated that has been feeling increasingly depressed with suicidal ideation over the last 1-2 weeks. Reports he started to drink when he was 16 and for the last a few weeks he was drinking every day "as much as I can get" and he reports history of withdrawal symptoms including shakiness and irritability but denies any history of alcohol-related seizures or previous detox treatment. He denies any detail problems related to alcohol drinking. Reports is still feeling depressed but denies any suicidal ideation during evaluation today. Denies sleep or appetite robins. He denies history of depressive episodes or previous treatment for depression or anxiety. Reports that the only psychiatric medications that he was taking his Adderall for ADD. Denies symptoms of consistent unexplained anxiety, overly worried: Panic attacks. Denies any current or previous symptoms of tracey including elevated mood, grandiosity, absence need to sleep due to unusual increase in activities, or impulsive/uninhibited behavior. Denies any current or previous symptoms of psychosis including hallucinations, paranoid ideation, or delusions. No reports of previous suicidal attempts and denies any history of self- injurious behavior by cutting or burning. As per ED report, the patient stated that he had planned to kill himself when presented to the ED either by overdose on pills or to bring a gun and shoot himself, and his blood pressure in ER was 212/109. The patient supposedly to be on hypertension medication but reports couldn't afford the medication and was not taking them." Hospital course: Upon admission to the unit patient was initially is acting with increased p sychomotor activity with some base confusion. Patient was however directable and agreeable to commence treatment. Patient was started on a regimen of Ativan for alcohol withdrawal and trazodone for insomnia. On initial evaluation, the patient did not endorse any suicidal or homicidal ideation, intention, and/or plan. Over the course of the hospitalization, the patient presented well, participated in groups, and was adherent with his medications. When evaluated the following Wednesday, the patient continued to present well is not endorsing any suicidal or homicidal ideation, intention, and/or plan. He does appear to be having occasional episodes of confusion but is currently alert and oriented in all spheres. He denies any access to firearms or weapons. He was counseled on substance use, especially his alcohol use but is not willing to go to inpatient rehab at this time. He is not reporting any auditory or visual hallucinations. He is denying any paranoia or other delusions. He has been adherent with his medications and is not endorsing any significant side effects. Collateral information was provided by the patient's sister reports that the patient is safe to go to his parents home and that she would be up to check up on him. She confirms that the patient has no access to firearms or other weapons. His counseled on following up with his outpatient appointments. Strongly recommend that this patient continues to follow-up due to possible cognitive impairment secondary to his chronic and heavy alcohol use. The patient was advised at great length to avoid operating heavy machinery, such as driving, should he be under the influence of alcohol. Patient was counseled on the medications and need for regular compliance and was [facility] and for primary care. Prior to discharge, a family meeting will be arranged by the social media analyst to answer any questions and ensure safety. Mental status exam: General Appearance: Patient appears to be stated age is alert, pleasant, and cooperative. Patient is in no acute distress and has fair hygiene and grooming. Patient is thin and balding. Behavior: Patient is calmly seated without any agitated behavior. Psychomotor activity appears normal. Eye contact is appropriate. Speech: Patient's speech is fluent and nonpressured. Mood/Affect: Patient reports their mood is "much better", affect is congruent and euthymic. Suicidality/Homicidality: Patient vehemently denies any suicidal or homicidal ideation, intention, and/or plan. Perceptions: Patient vehemently denies any auditory or visual hallucinations. Though content/process: There is no evidence of any delusional thought content and thought process is linear and goal-directed. Patient is future oriented. Memory and concentration: AOX3, grossly intact for the purposes of this session. Can spell "WORLD" backwards correctly. Judgment and insight: Improved with guarded prognosis Impression: Major depressive disorder, unspecified Alcohol use disorder, severe Nicotine dependence Rule out cognitive impairment Plan: -Continue with discharge today as patient has improved and stabilized psychiat rically and is not currently an imminent threat to himself and/or others. Patient will remain at chronically elevated risk for harm to self and/or others due to his heavy alcohol use and mild cognitive impairment. -Continue medications: Trazodone 50 mg by mouth at bedtime when necessary Thiamine and folic acid Nicotine replacement therapy patches -Patient was counseled on the need for medication compliance and appropriate follow-up at mental health and also primary care for medical issues. Patient verbalized understanding and agreed. -Social work to arrange for and conduct family meeting to ensure safety upon discharge and answer any questions/concerns. Social work also to arrange for patients follow up appointments with the [place] for psychiatric care along with follow up with primary care provider. Patient would benefit from appropriate follow-up for possible cognitive impairment secondary to his heavy alcohol use. -Patient counseled on abstaining from recreational drugs and marijuana and alcohol. Was informed/educated on the adverse effects on their physical and mental health. Patient verbally agreed and understood. Patient was offered substance abuse treatment however declined at this time. -Patient was instructed to return to the hospital or seek immediate medical care if their psychiatric or medical symptoms do worsen or reoccur. -Psychoeducation and supportive therapy provided to patient. Risks and benefits of pharmacological treatment versus the risks and benefits of nontreatment weight and discussed. Informed consent discussion held. Common side effects of psychotropics discussed such as, but not limited to headache, GI disturbance, sexual dysfunction, movement disorders, sedation, and orthostatic hypotension. Life threatening and blackbox warnings of prescribed medications also discussed. Potential risks of operating a vehicle or heavy machinery discussed with patient at length. Advised on importance of compliance and a reliable and responsible manner. Patient advised to review FDA consumer labeling of all medications prior to taking. Patient verbalized understanding of potential risks, and agrees with current treatment plan. Patient advised to medically contact physician/emergency personnel if any acute changes in condition occur. Vital Signs Temp 98.4 F 08/05/20 02:16 Pulse 101 H 08/05/20 08:26 Resp 16 08/05/20 08:26 BP 145/92 08/05/20 08:26 Pulse Ox 98 08/03/20 14:50 Allergies Allergy/AdvReac Type Severity Reaction Status Date / Time No Known Allergies Allergy Verified 08/02/20 11:00 Laboratory Results WBC 7.0 k/uL (3.8-10.6) 08/02/20 10:05 RBC 3.62 m/uL (4.30-5.90) L 08/02/20 10:05 Hgb 11.7 gm/dL (13.0-17.5) L 08/02/20 10:05 Hct 35.1 % (39.0-53.0) L 08/02/20 10:05 MCV 97.0 fL (80.0-100.0) 08/02/20 10:05 MCH 32.4 pg (25.0-35.0) 08/02/20 10:05 MCHC 33.4 g/dL (31.0-37.0) 08/02/20 10:05 RDW 12.7 % (11.5-15.5) 08/02/20 10:05 Plt Count 209 k/uL (150-450) 08/02/20 10:05 MPV 7.7 08/02/20 10:05 Neutrophils % 73 % 08/02/20 10:05 Lymphocytes % 15 % 08/02/20 10:05 Monocytes % 7 % 08/02/20 10:05 Eosinophils % 2 % 08/02/20 10:05 Basophils % 1 % 08/02/20 10:05 Neutrophils # 5.1 k/uL (1.3-7.7) 08/02/20 10:05 Lymphocytes # 1.1 k/uL (1.0-4.8) 08/02/20 10:05 Monocytes # 0.5 k/uL (0-1.0) 08/02/20 10:05 Eosinophils # 0.2 k/uL (0-0.7) 08/02/20 10:05 Basophils # 0.1 k/uL (0-0.2) 08/02/20 10:05 Sodium 136 mmol/L (137-145) L 08/03/20 06:05 Potassium 4.5 mmol/L (3.5-5.1) 08/03/20 06:05 Chloride 102 mmol/L (98-107) 08/03/20 06:05 Carbon Dioxide 28 mmol/L (22-30) 08/03/20 06:05 Anion Gap 6 mmol/L 08/03/20 06:05 BUN 8 mg/dL (9-20) L 08/03/20 06:05 Creatinine 0.57 mg/dL (0.66-1.25) L 08/03/20 06:05 Est GFR (CKD-EPI)AfAm >90 (>60 ml/min/1.73 sqM) 08/03/20 06:05 Est GFR (CKD-EPI)NonAf >90 (>60 ml/min/1.73 sqM) 08/03/20 06:05 Glucose 79 mg/dL (74-99) 08/03/20 06:[address] Glu mg/dL 94 08/03/20 06:05 Hemoglobin A1c 4.9 % (4.0-6.0) 08/03/20 06:05 Calcium 8.8 mg/dL (8.4-10.2) 08/03/20 06:05 Total Bilirubin 1.1 mg/dL (0.2-1.3) 08/03/20 06:05 AST 117 U/L (17-59) H 08/03/20 06:05 ALT 50 U/L (4-49) H 08/03/20 06:05 Alkaline Phosphatase 244 U/L (38-126) H 08/03/20 06:05 Total Protein 6.3 g/dL (6.3-8.2) 08/03/20 06:05 Albumin 3.1 g/dL (3.5-5.0) L 08/03/20 06:05 Triglycerides 73 mg/dL (<150) 08/03/20 06:05 Cholesterol 121 mg/dL (<200) 08/03/20 06:05 LDL Cholesterol, Calc 70 mg/dL (0-99) 08/03/20 06:05 HDL Cholesterol 36 mg/dL (40-60) L 08/03/20 06:05 TSH 1.370 mIU/L (0.465-4.680) 08/03/20 06:05 Urine Color Light Yellow 08/02/20 10:53 Urine Appearance Clear (Clear) 08/02/20 10:53 Urine pH 6.0 (5.0-8.0) 08/02/20 10:53 Ur Specific [place] 1.003 (1.001-1.035) 08/02/20 10:53 Urine Protein Negative (Negative) 08/02/20 10:53 Urine Glucose (UA) Negative (Negative) 08/02/20 10:53 Urine Ketones Negative (Negative) 08/02/20 10:53 Urine Blood Negative (Negative) 08/02/20 10:53 Urine Nitrite Negative (Negative) 08/02/20 10:53 Urine Bilirubin Negative (Negative) 08/02/20 10:53 Urine Urobilinogen <2.0 mg/dL (<2.0) 08/02/20 10:53 Ur Leukocyte Esterase Negative (Negative) 08/02/20 10:53 Urine Opiates Screen Not Detected (NotDetected) 08/02/20 10:53 Ur Oxycodone Screen Not Detected (NotDetected) 08/02/20 10:53 Urine Methadone Screen Detected (NotDetected) H 08/02/20 10:53 Ur Propoxyphene Screen Not Detected (NotDetected) 08/02/20 10:53 Ur Barbiturates Screen Not Detected (NotDetected) 08/02/20 10:53 U Tricyclic Antidepress Not Detected (NotDetected) 08/02/20 10:53 Ur Phencyclidine Scrn Not Detected (NotDetected) 08/02/20 10:53 Ur Amphetamines Screen Detected (NotDetected) H 08/02/20 10:53 U Methamphetamines Scrn Not Detected (NotDetected) 08/02/20 10:53 U Benzodiazepines Scrn Not Detected (NotDetected) 08/02/20 10:53 Urine Cocaine Screen Not Detected (NotDetected) 08/02/20 10:53 U Marijuana (THC) Screen Not Detected (NotDetected) 08/02/20 10:53 Serum Alcohol 96 mg/dL 08/02/20 10:05 Coronavirus (PCR) Not Detected (Not Detectd) 08/02/20 12:50 Patient Condition at Discharge: Stable Plan - Discharge Summary Discharge Rx Participant: Yes New Discharge Prescriptions: New traZODone HCL [Desyrel] 50 mg PO HS PRN 30 Days tab PRN Reason: Insomnia Folic Acid 1 mg PO DAILY 30 Days tab Nicotine 14Mg/24Hr Patch [Habitrol] 1 patch TRANSDERM DAILY 30 Days patch Thiamine [Vitamin B-1] 100 mg PO BID-W/MEALS 30 Days tab lisinopriL [Zestril] 20 mg PO DAILY 30 Days tab Discharge Medication List Folic Acid 1 mg PO DAILY 30 Days tab 08/05/20 [Rx] Nicotine 14Mg/24Hr Patch [Habitrol] 1 patch TRANSDERM DAILY 30 Days patch 08/05/20 [Rx] Thiamine [Vitamin B-1] 100 mg PO BID-W/MEALS 30 Days tab 08/05/20 [Rx] lisinopriL [Zestril] 20 mg PO DAILY 30 Days tab 08/05/20 [Rx] traZODone HCL [Desyrel] 50 mg PO HS PRN 30 Days tab 08/05/20 [Rx] Follow up Appointment(s)/Referral(s): [facility] [NON-STAFF] - 1 Week Patient Instructions/Handouts: How to Stop Smoking (DC), Mood Disorders (DC) Activity/Diet/Wound Care/Special Instructions: Activity and diet as tolerated. Avoid the use of street drugs and alcohol. Take all medications as prescribed. When you are in need of refills on your medications please contact your medical provider and/or outpatient psychiatrist to have this done. Please go to scheduled outpatient appointment for aftercare treatment. If symptoms return or become worse, call the crisis line at and/or go to the nearest emergency room for evaluation. Discharge Disposition: HOME SELF-CARE
[2020-08-05 13:13] VITALS: TEMP 98
[2020-08-06] MEDS ORDERED: LORazepam 0.5 MG TAB PO SCH (21:00)
== END 2020-08-05 14:31 | disposition home or self-care (01) | DRG 885 ==
LOC: EC 09:17 → 3MHU 14:13
PROVIDERS: ADMIT Psychiatry & Neurology Psychiatry; ATTEND Psychiatry & Neurology Psychiatry
DX: F33.9 Major depressive disorder, recurrent, unspecified (principal); R45.851 Suicidal ideations; F10.239 Alcohol dependence with withdrawal, unspecified; F17.200 Nicotine dependence, unspecified, uncomplicated; E86.0 Dehydration; G31.84 Mild cognitive impairment of uncertain or unknown etiology; Z20.822 Contact with and (suspected) exposure to COVID-19; G47.00 Insomnia, unspecified; Y90.4 Blood alcohol level of 80-99 mg/100 ml; I10 Essential (primary) hypertension; Z79.899 Other long term (current) drug therapy; Z91.19 Patient's noncompliance with other medical treatment and regimen
CPT/HCPCS: 36415; 80053; 80061; 80306; 80320; 81003; 82075; 83036; 84443; 85025; 87635; 96361; 96374; 96375; 99285

== ENCOUNTER 2021-04-22 11:28 | Inpatient (IN) | payer OTHER ==
[2021-04-22] MEDS ORDERED: LORazepam 2 MG/ML INJ IM STA (11:30)
--- NOTE | 2021-04-22 11:41 | ED ---
General Adult HPI - General Chief complaint: Alcohol Stated complaint: ETOH Time Seen by Provider: 04/22/21 11:36 Source: patient, EMS Mode of arrival: EMS Limitations: altered mental status - History of Present Illness Initial comments: Dictation was produced using [employer] dictation software. please excuse any grammatical, word or spelling errors. Chief Complaint: 60-year-old male brought in by EMS for intoxication History of Present Illness: 60-year-old male who was found in a van in the parking lot of a rehab facility. EMS was called by rehab staff. Patient is allegedly alcohol intoxicated. Patient is uncooperative. Denies any medical complaints at this time. Unable to obtain because patient is uncooperative PHYSICAL EXAM: General Impression: Aggressive, combative, inebriated and smells of EtOH HEENT: Normocephalic atraumatic, extra-ocular movements intact, pupils equal and reactive to light bilaterally, mucous membranes moist. Cardiovascular: Heart regular rate and rhythm Chest: Able to complete full sentences, no retractions, no tachypnea Abdomen: abdomen soft, non-tender, non-distended, no organomegaly Musculoskeletal: Pulses present and equal in all extremities, no peripheral edema Motor: no focal deficits noted Neurological: CN II-XII grossly intact, no focal motor or sensory deficits noted Skin: Intact with no visualized rashes Psych: Agitated ED course: 60-year-old aggressive male presents via EMS for intoxication. He was brought in by EMS after being found intoxicated in a van parked outside of the rehab facility. Patient is aggressive and combative. He is placed in restraints. Patient given Ativan for sedation. He allegedly has long history of alcohol abuse and alcohol withdrawal. EKG interpretation: Ventricular rate 87, normal sinus, OK interval 166, QRS 96, QTC 490. No OK prolongation, no QTC prolongation, no ST or T-wave changes noted. Overall, this EKG is unremarkable Laboratory evaluation obtained. CBC unremarkable. Metabolic panel is negative. No acidosis. Serum alcohol elevated at 360 blood molar gap is normal. Alcohol level 284. Patient will be admitted for alcohol intoxication. CIWA scheduled every 4 hours. - Related Data Home Medications Medication Instructions Recorded Confirmed Sertraline [Zoloft] 50 mg PO DAILY 04/22/21 04/22/21 Allergies Allergy/AdvReac Type Severity Reaction Status Date / Time No Known Allergies Allergy Verified 04/22/21 13:14 Review of Systems ROS Statement: Those systems with pertinent positive or pertinent negative responses have been documented in the HPI. ROS Other: All systems not noted in ROS Statement are negative. Past Medical History Past Medical History: Hypertension Additional Past Medical History / Comment(s): non-compliant with bp pills, ETOH History of Any Multi-Drug Resistant Organisms: None Reported Past Surgical History: Unable to Obtain Additional Past Surgical History / Comment(s): vasectomy Past Psychological History: Depression Smoking Status: Current every day smoker Past Alcohol Use History: Daily, Heavy Past Drug Use History: Marijuana General Exam Limitations: altered mental status Course Vital Signs 04/22/21 04/22/21 11:31 12:00 Temperature 97.2 F L Pulse Rate 83 76 Respiratory 18 16 Rate Blood Pressure 149/73 124/79 O2 Sat by Pulse 96 98 Oximetry Procedures - Restraint - Face to Face Restraint Occurrence 1 Patient's Immediate Situation: Endangers self safety, Endangers others' safety, Endangers staff safety, Violent behavior Patient's Reaction to the Intervention: Angry, Hostile Patient's Medical & Behavioral Condition: Awake, Agitated Need to Continue or Terminate Restraint or Seclusion: Continue Face to Face Eval of Restraint Date: 04/22/21 Face to Face Eval of Restraint Time: 11:35 Medical Decision Making - Lab Data Result diagrams: 04/22/21 11:50 04/22/21 11:50 Lab Results 04/22/21 04/22/21 04/22/21 Range/Units 11:50 11:50 11:50 WBC 9.7 (3.8-10.6) k/uL RBC 4.57 (4.30-5.90) m/uL Hgb 13.9 (13.0-17.5) gm/dL Hct 40.2 (39.0-53.0) % MCV 88.0 (80.0-100.0) fL MCH 30.4 (25.0-35.0) pg MCHC 34.5 (31.0-37.0) g/dL RDW 13.2 (11.5-15.5) % Plt Count 314 (150-450) k/uL MPV 7.3 Neutrophils % 73 % Lymphocytes % 19 % Monocytes % 5 % Eosinophils % 1 % Basophils % 1 % Neutrophils # 7.1 (1.3-7.7) k/uL Lymphocytes # 1.8 (1.0-4.8) k/uL Monocytes # 0.5 (0-1.0) k/uL Eosinophils # 0.1 (0-0.7) k/uL Basophils # 0.1 (0-0.2) k/uL Sodium 140 (137-145) mmol/L Potassium 3.5 (3.5-5.1) mmol/L Chloride 101 (98-107) mmol/L Carbon Dioxide 23 (22-30) mmol/L Anion Gap 16 mmol/L BUN 10 (9-20) mg/dL Creatinine 0.69 (0.66-1.25) mg/dL Est GFR (CKD-EPI)AfAm >90 (>60 ml/min/1.73 sqM) Est GFR (CKD-EPI)NonAf >90 (>60 ml/min/1.73 sqM) Glucose 177 H (74-99) mg/dL POC Glucose (mg/dL) (75-99) mg/dL POC Glu [employer] Supervisor ID Osmolality 360 H* (280-301) mosm/kg Calcium 9.6 (8.4-10.2) mg/dL Magnesium 1.9 (1.6-2.3) mg/dL Total Bilirubin 0.5 (0.2-1.3) mg/dL AST 32 (17-59) U/L ALT 17 (4-49) U/L Alkaline Phosphatase 110 (38-126) U/L Total Protein 7.4 (6.3-8.2) g/dL Albumin 4.3 (3.5-5.0) g/dL Salicylates <1.0 mg/dL Urine Opiates Screen Not Detected (NotDetected) Ur Oxycodone Screen Not Detected (NotDetected) Urine Methadone Screen Not Detected (NotDetected) Ur Propoxyphene Screen Not Detected (NotDetected) Acetaminophen <10.0 ug/mL Ur Barbiturates Screen Not Detected (NotDetected) U Tricyclic Antidepress Not Detected (NotDetected) Ur Phencyclidine Scrn Not Detected (NotDetected) Ur Amphetamines Screen Not Detected (NotDetected) U Methamphetamines Scrn Not Detected (NotDetected) U Benzodiazepines Scrn Not Detected (NotDetected) Urine Cocaine Screen Detected H (NotDetected) U Marijuana (THC) Screen Not Detected (NotDetected) Serum Alcohol 284 H* mg/dL 04/22/21 Range/Units 11:57 WBC (3.8-10.6) k/uL RBC (4.30-5.90) m/uL Hgb (13.0-17.5) gm/dL Hct (39.0-53.0) % MCV (80.0-100.0) fL MCH (25.0-35.0) pg MCHC (31.0-37.0) g/dL RDW (11.5-15.5) % Plt Count (150-450) k/uL MPV Neutrophils % % Lymphocytes % % Monocytes % % Eosinophils % % Basophils % % Neutrophils # (1.3-7.7) k/uL Lymphocytes # (1.0-4.8) k/uL Monocytes # (0-1.0) k/uL Eosinophils # (0-0.7) k/uL Basophils # (0-0.2) k/uL Sodium (137-145) mmol/L Potassium (3.5-5.1) mmol/L Chloride (98-107) mmol/L Carbon Dioxide (22-30) mmol/L Anion Gap mmol/L BUN (9-20) mg/dL Creatinine (0.66-1.25) mg/dL Est GFR (CKD-EPI)AfAm (>60 ml/min/1.73 sqM) Est GFR (CKD-EPI)NonAf (>60 ml/min/1.73 sqM) Glucose (74-99) mg/dL POC Glucose (mg/dL) 170 H (75-99) mg/dL POC Glu [employer] Supervisor ID Shagufta Hamilton Osmolality (280-301) mosm/kg Calcium (8.4-10.2) mg/dL Magnesium (1.6-2.3) mg/dL Total Bilirubin (0.2-1.3) mg/dL AST (17-59) U/L ALT (4-49) U/L Alkaline Phosphatase (38-126) U/L Total Protein (6.3-8.2) g/dL Albumin (3.5-5.0) g/dL Salicylates mg/dL Urine Opiates Screen (NotDetected) Ur Oxycodone Screen (NotDetected) Urine Methadone Screen (NotDetected) Ur Propoxyphene Screen (NotDetected) Acetaminophen ug/mL Ur Barbiturates Screen (NotDetected) U Tricyclic Antidepress (NotDetected) Ur Phencyclidine Scrn (NotDetected) Ur Amphetamines Screen (NotDetected) U Methamphetamines Scrn (NotDetected) U Benzodiazepines Scrn (NotDetected) Urine Cocaine Screen (NotDetected) U Marijuana (THC) Screen (NotDetected) Serum Alcohol mg/dL Disposition Clinical Impression: Alcoholic intoxication Disposition: ADMITTED IP TO THIS [facility] Condition: Fair Referrals: None,Stated [Primary Care Provider] - 1-2 days
[2021-04-22 12:06] LABS: Glucose,Whole Blood 170 mg/dL (75-99)
[2021-04-22 12:08] LABS: Basophils # (A) 0.1 k/uL (0-0.2); Basophils % (A) 1 %; Eosinophils # (A) 0.1 k/uL (0-0.7); Eosinophils % (A) 1 %; HCT 40.2 % (39.0-53.0); HGB 13.9 gm/dL (13.0-17.5); Lymphocytes # (A) 1.8 k/uL (1.0-4.8); Lymphocytes % (A) 19 %; MCH 30.4 pg (25.0-35.0); MCHC 34.5 g/dL (31.0-37.0); Mean Platelet Volume 7.3; Monocytes # (A) 0.5 k/uL (0-1.0); Monocytes % (A) 5 %; Neutrophils # (A) 7.1 k/uL (1.3-7.7); Neutrophils % (A) 73 %; Platelet Count 314 k/uL (150-450); RBC 4.57 m/uL (4.30-5.90); RDW 13.2 % (11.5-15.5); WBC 9.7 k/uL (3.8-10.6)
[2021-04-22 12:27] LABS: Amphetamine Screen,Urine Not Detected (NotDetected); Barbiturate Screen,Urine Not Detected (NotDetected); Benzodiazepines Screen,Urine Not Detected (NotDetected); Cocaine Screen,Urine Detected (NotDetected); Methadone Screen, Urine Not Detected (NotDetected); Opiate Screen,Urine Not Detected (NotDetected); Oxycodone Screen, Urine Not Detected (NotDetected); Phencyclidine Screen,Urine Not Detected (NotDetected); Potassium 3.5 mmol/L (3.5-5.1); Tricyclic Antidepressant,Urine Not Detected (NotDetected); Urn Cannabinoid Scrn Not Detected (NotDetected)
[2021-04-22 12:28] LABS: ALT 17 U/L (4-49); AST 32 U/L (17-59); Acetaminophen <10.0 ug/mL; African American GFR (CKD) >90 (>60 ml/min/1.73 sqM); Albumin 4.3 g/dL (3.5-5.0); Alkaline Phosphatase 110 U/L (38-126); Anion Gap 16 mmol/L; Blood Urea Nitrogen 10 mg/dL (9-20); Calcium 9.6 mg/dL (8.4-10.2); Carbon Dioxide 23 mmol/L (22-30); Chloride 101 mmol/L (98-107); Glucose 177 mg/dL (74-99); Magnesium 1.9 mg/dL (1.6-2.3); Non-African American GFR(CKD) >90 (>60 ml/min/1.73 sqM); Salicylate <1.0 mg/dL; Sodium 140 mmol/L (137-145); Total Bilirubin 0.5 mg/dL (0.2-1.3); Total Protein 7.4 g/dL (6.3-8.2)
[2021-04-22 12:45] LABS: Alcohol 284 mg/dL
[2021-04-22] MEDS ORDERED: NALOXONE 0.4 MG/ML 1 ML VIAL IV PRN (13:43)
[2021-04-22] MEDS ORDERED: THIAMINE 100 MG/ML 2 ML VIAL IM STA (13:44)
[2021-04-22] MEDS ORDERED: LORazepam 2 MG/ML INJ IV PRN ×2 (13:44)
[2021-04-22] MEDS: SODIUM CHLORIDE 0.9% 1,000 ML IV SCH (14:24)
--- NOTE | 2021-04-22 21:15 | P.HPIM ---
History of Present Illness H&P Date: 04/22/21 Chief Complaint: Found intoxicated This is a 60-year-old patient was found outside a rehab facility. EMS found the patient to be heavily intoxicated. Patient states he had gone to this place earlier today: [employer], that can help find people places to go and stay. He. He wished does not have a place right now. Upon arrival to the ER patient became aggressive and combative and patient had to be given some restraining assistance. Patient did receive Ativan. Patient in August of this year was admitted to our psychiatry unit. That time and presented with increasing depression and suicidal ideation. He was then diagnosed with major depressive disorder. Patient drinks about a fifth of liquor everyday. Also smokes over a pack a day. Patient's currently has not agitated. He states he has trouble sleeping. Appetite is fair. Review of systems: GEN.: None EYES: None HEENT: None NECK: None RESPIRATORY: None CARDIOVASCULAR: None GASTROINTESTINAL: None GENITOURINARY: None MUSCULOSKELETAL: None LYMPHATICS: None HEMATOLOGICAL: None PSYCHIATRY: [Anxious NEUROLOGICAL: Trouble sleeping Past medical history to include: Hypertension, major depressive disorder, alcohol use disorder, nicotine dependence, Social history: Patient used to previously lived with [place]. Smoking 1 pack a day. Drinks a fifth of liquor daily. Does not have a place to live currently. Has a van. Family history: Reviewed, noncontributory to presentation Physical examination: VITAL SIGNS: 98.7, 87, 16, 154/72, 98% on room air GENERAL: BMI 24, laying in bed, awake, watching television. Patient's face is flushed, spider nevi and upper chest EYES: Pupils equal. Conjunctiva normal. HEENT: External appearance of nose and ears normal, oral cavity grossly normal. NECK: JVD not raised; masses not palpable. HEART: First and second heart sounds are normal; no edema. LUNGS: Respiratory rate normal; decreased breath sounds. ABDOMEN: Soft, nontender, liver spleen not palpable, no masses palpable. PSYCH: Alert and oriented x3; mood and affect normal. NEUROLOGICAL: Cranial nerves grossly intact; no facial asymmetry, power and sensation grossly intact. LYMPHATICS: No lymph nodes palpable in the axilla and neck INVESTIGATIONS, reviewed in the clinical context: WBC 9.7 hemoglobin 13.9 platelets 314 sodium 140 potassium 3.5 BUN 10 creatinine 0.69 Serum osmolality 360 AST 32 ALT 17 Urine tox screen positive for cocaine. Serum alcohol 24 Coronavirus [PCR]: Not detected EKG tracing personally reviewed by me-normal sinus rhythm Assessment and plan: -Acute metabolic encephalopathy from acute alcohol intoxication, upon presentation Patient will be closely followed. -Acute alcohol intoxication the patient does chronic alcohol intake DT prophylaxis. Valium 5 mg every 8. CIWA scale. -Alcohol use disorder Thiamine 100 mg daily. -Bipolar disorder, Consults psychiatry -Chronic nicotine dependence, cigarette smoker Nicotine patch -Essential hypertension Lisinopril hydrochlorothiazide Valium for DVT prophylaxis. CIWA scale. Nicotine patch. Consult psychiatry. Consults case planner. Past Medical History Past Medical History: Hypertension Additional Past Medical History / Comment(s): non-compliant with bp pills, ETOH History of Any Multi-Drug Resistant Organisms: None Reported Past Surgical History: Unable to Obtain Additional Past Surgical History / Comment(s): vasectomy Past Psychological History: Depression Smoking Status: Current every day smoker Past Alcohol Use History: Daily, Heavy Past Drug Use History: Marijuana Medications and Allergies Home Medications Medication Instructions Recorded Confirmed Type Sertraline [Zoloft] 50 mg PO DAILY 04/22/21 04/22/21 History Allergies Allergy/AdvReac Type Severity Reaction Status Date / Time No Known Allergies Allergy Verified 04/22/21 13:14 Physical Exam Vitals: Vital Signs Temp Pulse Resp BP Pulse Ox 04/22/21 17:50 98.7 F 87 16 154/72 98 04/22/21 12:00 76 16 124/79 98 04/22/21 11:31 97.2 F L 83 18 149/73 96 Intake and Output 04/22/21 04/22/21 04/22/21 06:59 14:59 22:59 Other: Weight 71.668 kg Results CBC & Chem 7: 04/22/21 11:50 04/22/21 11:50 Labs: Abnormal Lab Results - Last 24 Hours (Table) 04/22/21 04/22/21 04/22/21 Range/Units 11:50 11:50 11:57 Glucose 177 H (74-99) mg/dL POC Glucose (mg/dL) 170 H (75-99) mg/dL Osmolality 360 H* (280-301) mosm/kg Urine Cocaine Screen Detected H (NotDetected) Serum Alcohol 284 H* mg/dL
[2021-04-22] MEDS: THIAMINE 100 MG TAB PO SCH (21:16)
[2021-04-22] MEDS ORDERED: ENOXAPARIN 40 MG/0.4 ML SYRINGE SQ SCH (21:30)
[2021-04-22] MEDS: NICOTINE 21MG/24HR PATCH TRANSDERM SCH (21:36)
[2021-04-22] MEDS: diazePAM 5 MG TAB PO SCH (21:38)
[2021-04-22] MEDS: LORazepam 2 MG/ML INJ IV PRN (23:01)
[2021-04-23] MEDS: SODIUM CHLORIDE 0.9% 1,000 ML IV SCH (04:29)
[2021-04-23] MEDS: LORazepam 2 MG/ML INJ IV PRN (05:10)
[2021-04-23] MEDS: diazePAM 5 MG TAB PO SCH (09:14)
[2021-04-23] MEDS: NICOTINE 21MG/24HR PATCH TRANSDERM SCH (09:14)
[2021-04-23] MEDS: THIAMINE 100 MG TAB PO SCH (09:14)
--- NOTE | 2021-04-23 14:36 | P.CN ---
Psychiatric Consult - . Consult date: 04/23/21 (.) Consult:: 04/23/21 14:35 IDENTIFYING DATA: This patient is a , unemployed, 60-year-old male who was admitted for acute alcohol intoxication. HISTORY OF PRESENT ILLNESS: The patient presented to the hospital on 04/22/21, brought to the emergency department by EMS after there contacted by rehabilitation staff. The patient was found to be intoxicated and in a van in the parking lot of a rehabilitation facility. Upon presentation in the emergency department, the patient was noted to be uncooperative, aggressive, combative, and smelling of alcohol. Psychiatry has been consulted for bipolar depression. Upon evaluation on the medical floor, the patient is currently alert and oriented in all spheres. He is not reporting any suicidal or homicidal ideation, intention, and/or plan. He is denying any auditory or visualizations. He is not endorsing any significant psychiatric pathology at this time. He does acknowledge that he was intoxicated and states that he plans to quit alcohol use. He reports that he was drinking up to a fifth of liquor per day. In regards to depressive symptoms, the patient is not endorsing any significant symptoms of hopelessness, helplessness, anhedonia, or decrease in appetite. He does report that he has some difficulty sleeping, and issues with anxiety. The patient was last admitted on the psychiatric unit in July 2020 due to suicidal ideation and depression in the context of alcohol intoxication. The patient was only discharged on trazodone. PAST PSYCHIATRIC HISTORY: Patient has significant history of alcohol use disorder and alcohol-induced mood disorder. The patient has one inpatient psychiatric hospitalization in July 2020. The patient has not been following up with any outpatient psychotherapy or psychiatry appointments. Patient denies any history of suicide attempts in the past. PAST MEDICAL HISTORY: Past Medical History: Hypertension Additional Past Medical History / Comment(s): non-compliant with bp pills, ETOH History of Any Multi-Drug Resistant Organisms: None Reported Past Surgical History: Unable to Obtain Additional Past Surgical History / Comment(s): vasectomy Past Psychological History: Depression Smoking Status: Current every day smoker Past Alcohol Use History: Daily, Heavy Past Drug Use History: Marijuana ALLERGIES: as per EMR. CHEMICAL DEPENDENCY HISTORY: The patient reports he has been smoking one pack per day of cigarettes. He reports that he started to drink at the age of 16 and has been drinking heavily for many years, which has been gradually worse over the past year. He reports no significant history of legal problems or previous treatment for his alcohol use disorder. He does report a history of attending AA meetings but has not been in any inpatient rehab for his alcohol use. FAMILY PSYCHIATRIC/SUBSTANCE USE HISTORY: The patient reports as follows, diagnosed manic depression. He reports that his sisters attempted to commit suicide. He reports a sister that was addicted to drugs and alcohol. SOCIAL HISTORY: Nazanin is and has 2 grown-up children.he completed high school. He denies any significant history of childhood abuse. MENTAL STATUS EXAM: General Appearance: Patient appears to be stated age is alert, pleasant, and cooperative. Patient appears to have fair hygiene and grooming wearing hospital gown with fair eye contact. Behavior: Patient is calmly lying in bed without any agitated behavior. Eye contact is appropriate. Psychomotor activity is normal. Speech: Patient's speech is fluent and nonpressured. Mood/Affect: Patient reports their mood is "doing okay", affect is congruent and euthymic Suicidality/Homicidality: Patient is currently denying any suicidal or homicidal ideation, intention, and/or plan. Perceptions: Patient denies any visual hallucinations and denies any auditory hallucinations Though content/process: There is no evidence of any delusional thought content and thought process is linear and goal-directed. Memory and concentration: AOX3, grossly intact for the purposes of this session. Can spell "WORLD" backwards Judgment and insight: Fair IMPRESSIONS: Acute alcohol intoxication, resolving Alcohol use disorder, severe PLAN: -Continue your medical management. -At this time patient DOES NOT meet criteria for inpatient psychiatric admission. The patient is currently not presenting with any imminent risk of h arm to self or others. He does present at baseline, an elevated risk for self- harm, compared to the general population due to his alcohol use, and his age and sex demographic however is currently presenting well and not endorsing any imminent risk for this. He appears to be future-oriented. -Would recommend the following medication changes/additions: No medication recommendations will be made at this time. The patient does not wish to start any medications to help curb alcohol use. This provider discussed with the patient the options for acamprosate and naltrexone, which he is not interested in starting at this time. -Discontinue one-to-one supervision -Recommend social work for referral for inpatient rehabilitation or intensive outpatient rehabilitation for his alcohol use disorder -Psychiatry will sign off at this point, please contact with any questions. 04/23/21 14:36
[2021-04-23 15:33] VITALS: BP 149/77; PULSE 87; RESP 18; TEMP 98.6
[2021-04-23] MEDS ORDERED: diazePAM 5 MG TAB PO SCH (16:00)
--- NOTE | 2021-04-23 21:57 | P.DS ---
Providers Date of admission: 04/23/21 12:19 Expected date of discharge: 04/23/21 Attending physician: Prabhjot Meek Consults: 04/22/21 21:17 Consult Physician Routine Consulting Provider: Tavares Garcia Reason/Comments: Bipolar depression Do you want consulting provider notified?: Yes Primary care physician: Stated None Hospital Course: Chief Complaint: Found intoxicated This is a 60-year-old patient was found outside a rehab facility. EMS found the patient to be heavily intoxicated. Patient states he had gone to this place earlier today: [employer], that can help find people places to go and stay. He. He wished does not have a place right now. Upon arrival to the ER patient became aggressive and combative and patient had to be given some restraining assistance. Patient did receive Ativan. Patient in August of this year was admitted to our psychiatry unit. That time and presented with increasing depression and suicidal ideation. He was then diagnosed with major depressive disorder. Patient drinks about a fifth of liquor everyday. Also smokes over a pack a day. Patient's currently has not agitated. He states he has trouble sleeping. Appetite is fair. :. Patient did much better. Comfortable. Valium discontinued. Oral intake fair. Seen by psychiatry. Continue current medications. Patient's sis ter was contacted by the nurse. She will not have a more. Patient to have a place to go. He was asked to to stay overnight to the case managers could help him with the same. Patient decided to leave. Counseled about alcohol and smoking. Discussion and discharge planning more than 35 minutes Consultation: Dr. Garcia from psychiatry Past medical history to include: Hypertension, major depressive disorder, alcohol use disorder, nicotine dependence, Social history: Patient used to previously lived with [place]. Smoking 1 pack a day. Drinks a fifth of liquor daily. Does not have a place to live currently. Has a van. Family history: Reviewed, noncontributory to presentation Physical examination: VITAL SIGNS: 98.6, 87, 18, 1 49 x 77, 98% room air GENERAL: Comfortable. flushed, spider nevi and upper chest EYES: Pupils equal. Conjunctiva normal. HEENT: External appearance of nose and ears normal, oral cavity grossly normal. NECK: JVD not raised; masses not palpable. HEART: First and second heart sounds are normal; no edema. LUNGS: Respiratory rate normal; decreased breath sounds. ABDOMEN: Soft, nontender, liver spleen not palpable, no masses palpable. PSYCH: Alert and oriented x3; mood and affect normal. INVESTIGATIONS, reviewed in the clinical context: WBC 9.7 hemoglobin 13.9 platelets 314 sodium 140 potassium 3.5 BUN 10 creatinine 0.69 Serum osmolality 360 AST 32 ALT 17 Urine tox screen positive for cocaine. Serum alcohol 24 Coronavirus [PCR]: Not detected EKG tracing personally reviewed by me-normal sinus rhythm Assessment and plan: -Acute metabolic encephalopathy from acute alcohol intoxication, upon presentation: Improved -Acute alcohol intoxication the patient does chronic alcohol intake DT prophylaxis. Valium CIWA scale. -Alcohol use disorder Thiamine 100 mg daily. -Bipolar disorder, Consults psychiatry -Chronic nicotine dependence, cigarette smoker Nicotine patch -Essential hypertension Lisinopril hydrochlorothiazide Disposition: Unknown. Plan - Discharge Summary Discharge Rx Participant: No New Discharge Prescriptions: New Nicotine 21Mg/24Hr Patch [Habitrol] 1 patch TRANSDERM DAILY #14 patch Disulfiram [Antabuse] 250 mg PO DIRECTED #50 tablet Thiamine [Vitamin B-1] 100 mg PO BID-W/MEALS #60 tab Continue Sertraline [Zoloft] 50 mg PO DAILY Discharge Medication List Sertraline [Zoloft] 50 mg PO DAILY 04/22/21 [History] Disulfiram [Antabuse] 250 mg PO DIRECTED #50 tablet 04/23/21 [Rx] Nicotine 21Mg/24Hr Patch [Habitrol] 1 patch TRANSDERM DAILY #14 patch 04/23/21 [Rx] Thiamine [Vitamin B-1] 100 mg PO BID-W/MEALS #60 tab 04/23/21 [Rx] Follow up Appointment(s)/Referral(s): Neo Stephen DO [STAFF PHYSICIAN] - 3 Days (please call CT 04/24/21 to get authorization to see dr stephen. please call to schedule appointment. ) Patient Instructions/Handouts: Abuse of Alcohol (DC), Medical Clearance for Substance Abuse Treatment (DC), Alcohol Dependence (DC) Discharge Disposition: HOME SELF-CARE Plan of Treatment: outpatient alcohol abuse rehab,medical social work gave resources and information
== END 2021-04-23 18:00 | disposition home or self-care (01) | DRG 896 ==
LOC: EC 11:28 → 5NMEDONC 13:43 → INTOOBSV 04-23 12:19 → OBSVTOIN 04-23 12:19 → UNDODISOB 04-23 18:00 → UNDODISIN 04-23 18:00
PROVIDERS: ADMIT Hospitalist; ATTEND Hospitalist
DX: F10.129 Alcohol abuse with intoxication, unspecified (principal); G93.41 Metabolic encephalopathy; F31.30 Bipolar disorder, current episode depressed, mild or moderate severity, unspecified; F17.210 Nicotine dependence, cigarettes, uncomplicated; I10 Essential (primary) hypertension; Y90.8 Blood alcohol level of 240 mg/100 ml or more; Z20.822 Contact with and (suspected) exposure to COVID-19; Z79.899 Other long term (current) drug therapy; Z91.19 Patient's noncompliance with other medical treatment and regimen
CPT/HCPCS: 36415; 80053; 80143; 80179; 80306; 80320; 83735; 83930; 85025; 87635; 93005; 96372; 99285

== ENCOUNTER 2021-05-12 15:36 | Inpatient (IN) | payer OTHER ==
[2021-05-12] MEDS ORDERED: KETOROLAC 15 MG/ML 1 ML VIAL IM STA (15:43)
[2021-05-12] MEDS ORDERED: MORPHINE SULFATE 4 MG/ML SYRINGE IM STA (15:43)
--- NOTE | 2021-05-12 15:55 | ED ---
General Adult HPI - General Chief complaint: Extremity Injury, Lower Stated complaint: fall Time Seen by Provider: 05/12/21 15:37 Source: patient, EMS, RN notes reviewed, old records reviewed Mode of arrival: EMS Limitations: no limitations - History of Present Illness Initial comments: 60-year-old male presenting status post fall. Patient was on the back of a flatbed truck. He had begun to lose his balance, he jumped off landing on his feet. He experienced severe bilateral heel pain. He was brought in by EMS. He denies any other injury. He denies hip or knee pain. He denies any back pain. Denies head or neck trauma. No abdominal pain or chest pain. - Related Data Home Medications Medication Instructions Recorded Confirmed RX: Sertraline [Zoloft] 50 mg PO DAILY 04/22/21 05/12/21 lisinopriL [Zestril] 20 mg PO DAILY 05/12/21 05/12/21 Allergies Allergy/AdvReac Type Severity Reaction Status Date / Time No Known Allergies Allergy Verified 05/12/21 16:37 Review of Systems ROS Statement: Those systems with pertinent positive or pertinent negative responses have been documented in the HPI. ROS Other: All systems not noted in ROS Statement are negative. Past Medical History Past Medical History: Hypertension Additional Past Medical History / Comment(s): non-compliant with bp pills History of Any Multi-Drug Resistant Organisms: None Reported Past Surgical History: Unable to Obtain Additional Past Surgical History / Comment(s): vasectomy Past Anesthesia/Blood Transfusion Reactions: No Reported Reaction Past Psychological History: Depression Smoking Status: Current every day smoker Past Alcohol Use History: Daily, Heavy Past Drug Use History: Marijuana General Exam Limitations: no limitations General appearance: alert, in no apparent distress Head exam: Present: atraumatic, normocephalic Eye exam: Present: normal appearance, PERRL ENT exam: Present: normal exam Neck exam: Present: normal inspection. Absent: tenderness, meningismus Respiratory exam: Present: normal lung sounds bilaterally. Absent: respiratory distress, wheezes Cardiovascular Exam: Present: regular rate, normal rhythm GI/Abdominal exam: Present: soft. Absent: distended, tenderness, guarding Extremities exam: Present: other (Bilateral heel pain no ecchymosis, no gross deformity) Back exam: Present: normal inspection, full ROM. Absent: tenderness, paraspinal tenderness, vertebral tenderness Neurological exam: Present: alert, oriented X3, CN II-XII intact. Absent: motor sensory deficit Psychiatric exam: Present: normal affect, normal mood Skin exam: Present: warm, dry, intact. Absent: cyanosis, diaphoretic Course Vital Signs 05/12/21 15:38 Temperature 98.2 F Pulse Rate 74 Respiratory 16 Rate Blood Pressure 131/77 O2 Sat by Pulse 99 Oximetry Medical Decision Making - Medical Decision Making 60-year-old male status post fall with bilateral heel pain, x-rays revealed bilateral calcaneal fractures nondisplaced. I did discuss case with Dr. Hoskins covering for orthopedics. He will admit this patient for likely rehabilitation. CT of the bilateral feet has been ordered, results are pending. IV will be established and laboratory studies will be obtained. These results are also pending. Pain control has been ordered. Internal medicine consult for medical management. Disposition Clinical Impression: Bilateral calcaneal fractures Disposition: ADMITTED IP TO THIS [facility] Condition: Stable Is patient prescribed a controlled substance at d/c from ED?: No Referrals: None,Stated [Primary Care Provider] - 1-2 days Decision to Admit Reason: Admit from EC Decision Date: 05/12/21 Decision Time: 18:01
--- NOTE | 2021-05-12 17:07 | XR ---
EXAMINATION TYPE: XR foot complete bilateral DATE OF EXAM: 05/12/2021 COMPARISON: NONE HISTORY: Fall. Pain TECHNIQUE: 6 views FINDINGS: Metatarsals are intact. There are nondisplaced fractures through the body of the left and r ight calcaneus. There is plantar calcaneal spurring. The left and right talus appear intact. The toes appear intact. IMPRESSION: Bilateral nondisplaced calcaneal fractures.
--- NOTE | 2021-05-12 17:32 | XR ---
EXAMINATION TYPE: XR ankle complete bilateral DATE OF EXAM: 05/12/2021 COMPARISON: NONE HISTORY: Fall. Pain. TECHNIQUE: 6 views FINDINGS: There is nondisplaced fracture through the body of the left and right calcaneus in a symmet rical fashion. The subtalar joint is anatomic. There is bilateral plantar calcaneal spurring. Left an d right ankle mortises appears anatomic. IMPRESSION: Bilateral nondisplaced calcaneal fractures.
[2021-05-12] MEDS ORDERED: ACETAMINOPHEN TAB 325 MG TAB PO PRN (17:58)
[2021-05-12] MEDS ORDERED: NALOXONE 0.4 MG/ML 1 ML VIAL IV PRN (17:58)
[2021-05-12 18:58] LABS: Basophils % (A) 1 %; Eosinophils # (A) 0.3 k/uL (0-0.7); Eosinophils % (A) 4 %; HCT 35.7 % (39.0-53.0); HGB 12.5 gm/dL (13.0-17.5); Lymphocytes # (A) 1.5 k/uL (1.0-4.8); Lymphocytes % (A) 17 %; MCH 31.5 pg (25.0-35.0); MCHC 34.9 g/dL (31.0-37.0); MCV 90.2 fL (80.0-100.0); Mean Platelet Volume 8.2; Monocytes # (A) 0.5 k/uL (0-1.0); Monocytes % (A) 6 %; Neutrophils # (A) 6.3 k/uL (1.3-7.7); Neutrophils % (A) 71 %; Platelet Count 271 k/uL (150-450); RBC 3.96 m/uL (4.30-5.90); RDW 13.3 % (11.5-15.5); WBC 8.9 k/uL (3.8-10.6)
[2021-05-12 19:06] LABS: African American GFR (CKD) >90 (>60 ml/min/1.73 sqM); Anion Gap 8 mmol/L; Blood Urea Nitrogen 12 mg/dL (9-20); Calcium 9.1 mg/dL (8.4-10.2); Carbon Dioxide 28 mmol/L (22-30); Chloride 102 mmol/L (98-107); Glucose 148 mg/dL (74-99); Non-African American GFR(CKD) >90 (>60 ml/min/1.73 sqM); Potassium 4.1 mmol/L (3.5-5.1); Sodium 138 mmol/L (137-145)
[2021-05-12 19:18] LABS: INR 0.9 (<1.2); Partial Thromboplastin Time 27.3 sec (22.0-30.0); Prothrombin Time 10.1 sec (9.0-12.0)
--- NOTE | 2021-05-12 19:20 | CT ---
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 CT DLP: mGycm Automated exposure control for dose reduction was used. Images obtained from the distal tibia to the bottom of the foot without contrast. There is oblique fracture through the body of theP3s. There is some comminution. The fragments are di splaced up to 1 cm. The subtalar joint is anatomic. Ankle mortise is anatomic. Distal tibia and fibul a appear intact. The talus is intact. The metatarsals are intact. The toes appear intact. IMPRESSION: There is comminuted fracture of the body of the calcaneus with vertical and horizontal components and separation up to 1 cm of the fragments. No dislocation.
[2021-05-12] MEDS: KETOROLAC 15 MG/ML 1 ML VIAL IVP PRN (19:24)
--- NOTE | 2021-05-12 19:24 | CT ---
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 CT DLP: 402.4 (combined DLP, scanned together) mGycm Automated exposure control for dose reduction was used. Images obtained from the distal tibia to the bottom of the foot without contrast. FINDINGS: There is comminuted fracture of the body of the calcaneus with vertical and horizontal components. Th ere is plantar and Achilles calcaneal mild spurring. Subtalar joint is intact. Ankle mortise is anato salvador. Distal tibia and fibula appear intact. The metatarsals are intact. The toes appear intact. Calcaneal fragments are displaced up to 8 mm. IMPRESSION: Comminuted fractures of the calcaneus as above with vertical and horizontal components. Calcaneal fra gments displaced up to 8 mm.
[2021-05-12] MEDS: MORPHINE SULFATE 4 MG/ML SYRINGE IV PRN (19:25)
--- NOTE | 2021-05-12 20:47 | P.CONS ---
History of Present Illness - Reason for Consult Consult date: 05/12/21 - History of Present Illness The patient is a 60-year-old male with a PMH of hypertension and peripheral neuropathy who presented to the emergency room after a fall. 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 He reports immediately having severe bilateral heel pain. He denied any additional injuries from the fall. Denied head trauma or lower back pain. Noted that the pain was initially 10 out of 10, currently is at 2/10 at both his heels. He denied any additional complaints. Denied chest discomfort, shortness of breath, fever, chills, cough. Denied nausea, vomiting, abdominal pain, diarrhea. In the emergency room, bilateral feet and ankle x-rays revealed bilateral nondisplaced calcaneal fractures. Laboratory evaluation was reviewed and was remarkable for glucose of 148. The patient denied a history of type II DM. The patient was admitted to the surgical service with medicine consult. Review of systems: Pertinent positives and negatives as discussed in HPI, a complete review of syst ems was performed and all other systems are negative. Physical examination: General: non toxic, no distress, appears at stated age, overweight Derm: no unusual rashes/lesions no unusual ecchymoses, warm, dry Head: atraumatic, normocephalic, symmetric Eyes: EOMI, no lid lag, anicteric sclera, pupils equal round reactive to light ENT: Nose and ears atraumatic, no thrush, no pharyngeal erythema Neck: No thyromegaly, no cervical lymphadenopathy, trachea midline, supple Mouth: no lip lesion, mucus membranes moist Cardiovascular: S1S2 reg, no murmur, positive posterior tibial pulse bilateral, no edema, capillary refill less than 2 seconds Lungs: CTA bilateral, no rhonchi, no rales , no accessory muscle use Abdominal: soft, nontender to palpation, no guarding, no appreciable organomegaly, normal bowel sounds Ext: no gross muscle atrophy, muscle strength 5 out of 5 in all 4 extremities grossly except distal bilateral lower extremities, able to wiggle toes bilaterally, ALECIA bandages in place over isabel ankles, no contractures, Neuro: CN II-XI grossly intact, light touch intact all 4 extremities, finger to nose within normal limits, Psych: Alert, oriented, appropriate affect Assessment/plan Hypertension -Continue with home lisinopril Hyperglycemia -Check A1c Bilateral calcaneal fractures -Management including pain control as per the surgical service DVT prophylaxis -Heparin subcu We appreciate this opportunity to be involved in this patient's care. We will follow the patient with you. For any further questions, please not hesitate to contact the sound inpatient team. Past Medical History Past Medical History: Hypertension Additional Past Medical History / Comment(s): non-compliant with bp pills History of Any Multi-Drug Resistant Organisms: None Reported Past Surgical History: Unable to Obtain Additional Past Surgical History / Comment(s): vasectomy Past Anesthesia/Blood Transfusion Reactions: No Reported Reaction Past Psychological History: Depression Smoking Status: Current every day smoker Past Alcohol Use History: Daily, Heavy Past Drug Use History: Marijuana - Past Family History Mother Family Medical History: Hypertension Medications and Allergies Home Medications Medication Instructions Recorded Confirmed Type Sertraline [Zoloft] 50 mg PO DAILY 04/22/21 05/12/21 History lisinopriL [Zestril] 20 mg PO DAILY 05/12/21 05/12/21 History Allergies Allergy/AdvReac Type Severity Reaction Status Date / Time No Known Allergies Allergy Verified 05/12/21 16:37 Physical Exam Vitals: Vital Signs Temp Pulse Resp BP Pulse Ox 05/12/21 15:38 98.2 F 74 16 131/77 99 Intake and Output 05/12/21 05/12/21 05/12/21 06:59 14:59 22:59 Other: Weight 81.647 kg Results CBC & Chem 7: 05/12/21 18:50 05/12/21 18:50 Labs: Abnormal Lab Results - Last 24 Hours (Table) 05/12/21 05/12/21 Range/Units 18:50 18:50 RBC 3.96 L (4.30-5.90) m/uL Hgb 12.5 L (13.0-17.5) gm/dL Hct 35.7 L (39.0-53.0) % Glucose 148 H (74-99) mg/dL
[2021-05-12] MEDS ORDERED: MORPHINE SULFATE 2 MG/ML SYRINGE IVP STA (20:58)
[2021-05-12] MEDS ORDERED: HYDROmorphone 1 MG/ML 1 ML SYRINGE IVP STA (21:51)
[2021-05-12] MEDS: MELATONIN 5 MG TABLET PO SCH ×2 (22:56→22:59)
[2021-05-12] MEDS ORDERED: HYDROmorphone 1 MG/ML 1 ML SYRINGE IVP PRN (23:03)
[2021-05-13] MEDS: MORPHINE SULFATE 4 MG/ML SYRINGE IV PRN ×2 (03:22→10:58)
[2021-05-13] MEDS: lisinopriL 20 MG TAB PO SCH (08:46)
[2021-05-13] MEDS: SERTRALINE 50 MG TAB PO SCH (08:46)
--- NOTE | 2021-05-13 10:34 | P.HPOR ---
History of Present Illness H&P Date: 05/13/21 This patient is a 60-year-old male with past medical history of hypertension, who is a current every day smoker who presented to [facility] emergency department on 05/12/21 with complaints of bilateral heel pain after a fall. 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 He states he landed directly onto his bilateral heels onto concrete. He experienced immediate pain in the feet. He presented to [facility] emergency department, where x-rays were taken and revealed bilateral calcaneus fractures. He was admitted under the care of Dr. Hoskins with a consult placed to internal medicine for medical management. Patient is seen and examined bedside this morning. He is complaining of uncontrolled bilateral foot pain. He is currently in short leg splints placed by the ER. Patient states he was recently discharged from a rehab facility on 05/09/21, for alcohol and opioids. He states he received in IM injection of Deysi itrol on discharge. Patient states he recently moved here from [place] and does not have an established PCP. He states he lives in a sober house at this time. He denies additional injuries or complaints at this time. He denies numbness or tingling of the bilateral lower extremities. He denies bilateral hip, knee pain. Denies back pain. Vital signs stable. Past Medical History Past Medical History: Hypertension Additional Past Medical History / Comment(s): non-compliant with bp pills History of Any Multi-Drug Resistant Organisms: None Reported Past Surgical History: Unable to Obtain Additional Past Surgical History / Comment(s): vasectomy Past Anesthesia/Blood Transfusion Reactions: No Reported Reaction Past Psychological History: Anxiety, Depression Smoking Status: Current every day smoker Past Alcohol Use History: Daily, Heavy Additional Past Alcohol Use History / Comment(s): States he was at an inpatient rehab facility and disharged 05/09/2021 to a "sober living" home on IM injectable Vivitrol. Past Drug Use History: Marijuana Additional Drug Use History / Comment(s): pt denies opiate use/abuse, however was sent home from an inpatient rehab facility with extended release vivitrol IM to block opiate/alcohol effects on 05/09/2021. patient states he's in "sober living" at a sober house in the [facility]. - Past Family History Mother Family Medical History: Hypertension Medications and Allergies Home Medications Medication Instructions Recorded Confirmed Type Sertraline [Zoloft] 50 mg PO DAILY 04/22/21 05/12/21 History lisinopriL [Zestril] 20 mg PO DAILY 05/12/21 05/12/21 History Vivitrol 380 mg IM QMONTHLY 05/13/21 05/13/21 History Allergies Allergy/AdvReac Type Severity Reaction Status Date / Time No Known Allergies Allergy Verified 05/12/21 16:37 Physical Examination On examination, patient is lying bed in no apparent distress. He is alert and noted 3. His head appears normocephalic and atraumatic. His breathing appears nonlabored. On inspection of the bilateral upper extremities, there are no obvious deformities or signs of trauma. On inspection of his right lower extremity, there is a short leg splint in place. The visible portion of the toes are warm and well perfused with brisk capillary refill. Patient is able to wiggle toes appropriately. There is no pain with passive range of motion of the toes. No pain with passive range of motion of the right knee or hip. On inspection of the left lower extremity, there is a short leg splint in place. The visible portion of the toes are warm and well perfused with brisk capillary refill. Patient is able to wiggle toes appropriately. There is no pain with passive range of motion of the toes. No pain with passive range of motion of the left knee or hip. Results Bilateral foot x-ray 05/12/21: Bilateral, minimally displaced calcaneus fractures. Bilateral foot CT scans reviewed. - Labs Labs: Abnormal Lab Results - Last 24 Hours (Table) 05/12/21 05/12/21 Range/Units 18:50 18:50 RBC 3.96 L (4.30-5.90) m/uL Hgb 12.5 L (13.0-17.5) gm/dL Hct 35.7 L (39.0-53.0) % Glucose 148 H (74-99) mg/dL H & H 05/12/21 Range/Units 18:50 Hgb 12.5 L (13.0-17.5) gm/dL Hct 35.7 L (39.0-53.0) % Coagulation 05/12/21 Range/Units 18:50 INR 0.9 (<1.2) Result Diagrams: 05/12/21 18:50 05/12/21 18:50 Assessment and Plan Assessment: Bilateral, minimally displaced calcaneus fractures. Current everyday smoker. Plan: - The clinical and imaging findings were discussed with the patient. The patient was discussed in detail with Dr. Hoskins. We have no plans for surgical intervention during this hospital stay. Patient should remain strictly non- weight bearing on the bilateral lower extremities. Bilateral tall CAM boots have been ordered today. - We will consult case management to discuss possible discharge plans. Patient may need discharge to rehab due to non-weight bearing status. - Pain management as needed. Patient states he received an injection of Vivitrol 05/09/21. Toradol has been added. - Internal medicine consultation for medial management. - We will follow patient closely.
[2021-05-13] MEDS ORDERED: NICOTINE GUM (POLACRILEX) 2 MG GUM BUCCAL PRN (11:26)
[2021-05-13] MEDS ORDERED: HYDROmorphone 1 MG/ML 1 ML SYRINGE IVP PRN (11:32)
[2021-05-13] MEDS: KETOROLAC 15 MG/ML 1 ML VIAL IVP PRN ×2 (13:04→19:36)
[2021-05-13] MEDS: NICOTINE 21MG/24HR PATCH TRANSDERM SCH (13:04)
[2021-05-13] MEDS: PREGABALIN 25 MG CAP PO SCH ×2 (13:04→20:58)
--- NOTE | 2021-05-13 15:59 | P.PN ---
Subjective Progress Note Date: 05/13/21 Principal diagnosis: heal pain Patient history of hypertension, peripheral neuropathy, and alcoholism currently in a sober living house who presents to the emergency room after a fall. He was found to have bilateral calcaneal fractures. Laboratory analysis was essentially remarkable for glucose of 148. He was admitted to orthopedic surgery for medicine consult. Of note the patient received Vivitrol (a long-acting naltrexone injection) approximately 4 days ago. As suspected he has had a son optimal response to narcotic agents. This should be avoided going forward. Patient seen and examined at bedside. He complains of pain that has been unresponsive to both morphine and Dilaudid. He has not tried the Toradol. We discussed the long-acting naltrexone make opiate medications ineffective and that we have not opiate medications that control pain well. I encouraged use of Toradol and high dose Tylenol. We also discussed the addition of Lyrica which may cause drowsiness, he is okay with proceeding with this plan. He is also experiencing some nicotine withdrawal. He denies any chest pain, shortness of breath, nausea, vomiting. General: non toxic, mild distress secondary to pain, appears at stated age Derm: warm, dry Head: atraumatic, normocephalic, symmetric Eyes: EOMI, no lid lag, anicteric sclera Mouth: no lip lesion, mucus membranes moist Cardiovascular: S1S2 reg, no murmur, positive posterior tibial pulse bilateral, Lungs: CTA bilateral, no rhonchi, no rales , no accessory muscle use Abdominal: soft, nontender to palpation, no guarding, no appreciable organomegaly Ext: no gross muscle atrophy, no edema, no contractures, bilateral leg with Jason wrap in place Neuro: CN II-XI grossly intact, no focal neuro deficits Psych: Alert, oriented, appears appropriately agitated Bilateral calcaneal fractures with intractable pain -Stop all opiate medications as patient received long-acting IM naltrexone injection -Continue with Toradol, increase Tylenol to 1000 mg as needed, add Lyrica -If this is not controlling pain will seek pain management consultation for possible nerve block versus ketamine use -Orthopedic management Hyperglycemia -A1c 5.6 - no further testing needed Hypertension -Lisinopril Thank you for allowing us to participate in the care of this pleasant patient. Do not hesitate to contact us with questions. Someone can be reached from the [facility] hospitalist group all hours of the day at [phone] or via perfect serve. Objective - Vital Signs Vital signs: Vital Signs Temp 97.7 F 05/13/21 13:59 Pulse 77 05/13/21 13:59 Resp 18 05/13/21 13:59 BP 118/74 05/13/21 13:59 Pulse Ox 98 05/13/21 13:59 Intake & Output 05/12/21 05/13/21 05/13/21 18:59 06:59 18:59 Intake Total 480 Output Total 400 Balance -400 480 Weight 81.647 kg 81.647 kg Intake: Oral 480 Output: Urine 400 - Labs CBC & Chem 7: 05/12/21 18:50 05/12/21 18:50 Labs: Abnormal Lab Results - Last 24 Hours (Table) 05/12/21 05/12/21 Range/Units 18:50 18:50 RBC 3.96 L (4.30-5.90) m/uL Hgb 12.5 L (13.0-17.5) gm/dL Hct 35.7 L (39.0-53.0) % Glucose 148 H (74-99) mg/dL
[2021-05-13] MEDS: MELATONIN 5 MG TABLET PO SCH (20:59)
[2021-05-14] MEDS: KETOROLAC 15 MG/ML 1 ML VIAL IVP PRN ×3 (01:55→20:49)
[2021-05-14] MEDS: NICOTINE 21MG/24HR PATCH TRANSDERM SCH (08:15)
[2021-05-14] MEDS: lisinopriL 20 MG TAB PO SCH (08:16)
[2021-05-14] MEDS: SERTRALINE 50 MG TAB PO SCH (08:21)
[2021-05-14] MEDS: PREGABALIN 25 MG CAP PO SCH ×2 (08:21→20:44)
--- NOTE | 2021-05-14 10:18 | P.PN ---
Subjective Progress Note Date: 05/14/21 This patient is a 60-year-old male with past medical history of hypertension, who is a current every day smoker who presented to [facility] emergency department on 05/12/21 with complaints of bilateral heel pain after a fall. 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 He states he landed directly onto his bilateral heels onto concrete. He experienced immediate pain in the feet. He presented to [facility] emergency department, where x-rays were taken and revealed bilateral calcaneus fractures. He was admitted under the care of Dr. Hoskins with a consult placed to internal medicine for medical management. Patient is seen and examined bedside this morning. He is complaining of uncontrolled bilateral foot pain. He is currently in short leg splints placed by the ER. Patient states he was recently discharged from a rehab facility on 05/09/21. He states he received in IM injection of Vivitrol on discharge. Patient states he recently moved here from [place] and does not have an established PCP. He states he lives in a sober house at this time. He denies additional injuries or complaints at this time. He denies numbness or tingling of the bilateral lower extremities. He denies bilateral hip, knee pain. Denies back pain. 05/14/21: Patient is seen and examined bedside this morning. Physical therapy is currently in the room and planning on transferring patient to the bedside chair. Patient states his pain is much better controlled today. Patient is receiving Lyrica, Tylenol, Toradol for pain. Patient is agreeable to discharge to subacute rehab. He has no new complaints today. Objective - Vital Signs Vital signs: Vital Signs Temp 99.1 F 05/14/21 05:01 Pulse 72 05/14/21 05:01 Resp 16 05/14/21 05:01 BP 149/73 05/14/21 05:01 Pulse Ox 97 05/14/21 05:01 Intake & Output 05/13/21 05/14/21 05/14/21 18:59 06:59 18:59 Intake Total 480 1080 Output Total 800 Balance 480 280 Intake: Oral 480 1080 Output: Urine 800 Other: # Voids 1 - Exam On examination, patient is sitting up in bed in no apparent distress. He is alert and orientated 3. On inspection of the right lower extremity, there is a short leg splint in place. The short leg splint is removed and reveals diffuse swelling and ecchymosis of the foot. There is no open wounds or lacerations, and the skin is intact. Decreased pain to palpation of the calcaneus. Nontender palpation of the remaining foot, ankle, lower leg. Calf is soft and nontender to palpation. Patient is able to wiggle toes appropriately. Dorsalis pedis pulse palpable. Right lower extremity is warm and well perfused with brisk capillary refill distally. On inspection of the left lower extremity, there is a short-leg splint in place. The short leg splint is removed and reveals diffuse swelling and ecchymosis of the foot. There are no open wounds or lacerations, the skin is intact. Diffuse pain to palpation of the calcaneus. Nontender to palpation of the right foot, ankle, lower leg. Calf is soft and nontender to palpation. Patient is able to wiggle toes appropriately. Dorsalis pedis pulse palpable. Left lower extremity is warm and well perfused with brisk capillary refill distally. - Labs CBC & Chem 7: 05/12/21 18:50 05/12/21 18:50 Assessment and Plan Assessment: Bilateral, minimally displaced calcaneus fractures. Current everyday smoker. Plan: - Non-weight bearing bilateral lower extremities. Bilateral tall CAM boots were placed today. He should keep boots on at all times. Daily skin checks. - Pain management as needed. Patient received an injection of Vivitrol 05/09/21. Currently receiving Lyrica, Toradol, Tylenol for pain control. - Internal medicine consultation for medial management. - Anticipate discharge to subacute rehab within next 24-48 hours. We will plan to see patient in the office one week following discharge for repeat x-rays.
--- NOTE | 2021-05-14 16:37 | P.PN ---
Subjective Patient is doing well today. No acute events reported to be my nursing staff. Objective - Vital Signs Vital signs: Vital Signs Temp 98.7 F 05/14/21 12:01 Pulse 69 05/14/21 12:01 Resp 18 05/14/21 12:01 BP 137/76 05/14/21 12:01 Pulse Ox 98 05/14/21 12:01 Intake & Output 05/13/21 05/14/21 05/14/21 18:59 06:59 18:59 Intake Total 480 1080 Output Total 800 Balance 480 280 Intake: Oral 480 1080 Output: Urine 800 Other: # Voids 1 - Exam General: The patient is awake and alert, in no distress Eye: there is normal conjunctiva bilaterally. Neck: The neck is supple, there is no JVD. Cardiovascular: Normal S1-S2, no S3-S4, no murmurs. Respiratory: Lungs clear to auscultation bilaterally Gastrointestinal: Abdomen is soft, nontender Musculoskeletal: There is no pedal edema. Neurological:. Speech is normal. Skin: Skin is warm and dry - Labs CBC & Chem 7: 05/12/21 18:50 05/12/21 18:50 Assessment and Plan Assessment: Patient history of hypertension, peripheral neuropathy, and alcoholism currently in a sober living house who presents to the emergency room after a fall. He was found to have bilateral calcaneal fractures. Laboratory analysis was essentially remarkable for glucose of 148. He was admitted to orthopedic surgery for medicine consult. Of note the patient received Vivitrol (a long-acting naltrexone injection) approximately 4 days ago. As suspected he has had a son optimal response to narcotic agents. This should be avoided going forward. Bilateral calcaneal fractures with intractable pain -Stop all opiate medications as patient received long-acting IM naltrexone injection -Continue with Toradol, increase Tylenol to 1000 mg as needed, add Lyrica -If this is not controlling pain will seek pain management consultation for possible nerve block versus ketamine use -Orthopedic management Hyperglycemia -A1c 5.6 - no further testing needed Hypertension -Lisinopril Discharge planning per primary team
[2021-05-14] MEDS: MELATONIN 5 MG TABLET PO SCH (20:44)
[2021-05-15] MEDS: lisinopriL 20 MG TAB PO SCH (09:31)
[2021-05-15] MEDS: SERTRALINE 50 MG TAB PO SCH (09:31)
[2021-05-15] MEDS: PREGABALIN 25 MG CAP PO SCH ×2 (09:31→20:19)
[2021-05-15] MEDS: NICOTINE 21MG/24HR PATCH TRANSDERM SCH (09:31)
[2021-05-15] MEDS: ACETAMINOPHEN TAB 500 MG TAB PO PRN (09:34)
--- NOTE | 2021-05-15 10:10 | P.DS ---
Providers Date of admission: 05/12/21 17:58 Expected date of discharge: 05/15/21 Attending physician: Moe Hoskins Consults: 05/12/21 17:59 Consult Physician Routine Consulting Provider: Susan Cook Consult Reason/Comments: med management Do you want consulting provider notified?: Yes Primary care physician: Stated None Hospital Course: This is a 60-year-old male who is admitted to [facility] on 05/12/21 after falling about 10 feet off a car loaded and injuring his bilateral feet. X-rays and CT scans obtained in the emergency department revealed bilateral calcaneus fractures. He is admitted to our service for rehab placement. Internal medicine was consulted for medical management. Patient is seen and examined bedside this morning. He is currently wearing his bilateral tall CAM boots. He worked with physical therapy yesterday and was able to transfer to the bedside chair while remaining nonweightbearing on bilateral lower extremities. He states his pain is very well-controlled at this time. He is currently receiving Toradol, Lyrica, Tylenol for pain. He is doing well with no complaints this morning. He denies chest pain, shortness of breath, nausea, vomiting.. He is tolerating his diet well. He is voiding without issue. Patient was examined bedside today. Patient is alert and orientated x3. On inspection of the bilateral lower extremities,there are tall CAM boots in place. The visible portion of the toes are warm and well perfused. Patient is able to wiggle toes appropriately. There is no pain with range of motion of the toes. Patient is discharged to subacute rehab today in good condition, pending medical clearance. Patient will follow-up with Dr. Hoskins in the office in one week for repeat x-rays. Please see med rec for accurate list of discharge medication Patient Condition at Discharge: Stable Plan - Discharge Summary New Discharge Prescriptions: New Pregabalin [Lyrica] 25 mg PO BID 3 Days #6 capsule Ibuprofen [Motrin] 600 mg PO Q8HR PRN 10 Days #30 tab PRN Reason: Pain Acetaminophen Tab [Tylenol Tab] 500 mg PO Q6H 3 Days #12 tablet Continue Sertraline [Zoloft] 50 mg PO DAILY lisinopriL [Zestril] 20 mg PO DAILY Vivitrol 380 mg IM QMONTHLY Discharge Medication List Sertraline [Zoloft] 50 mg PO DAILY 04/22/21 [History] lisinopriL [Zestril] 20 mg PO DAILY 05/12/21 [History] Vivitrol 380 mg IM QMONTHLY 05/13/21 [History] Acetaminophen Tab [Tylenol Tab] 500 mg PO Q6H 3 Days #12 tablet 05/15/21 [Rx] Ibuprofen [Motrin] 600 mg PO Q8HR PRN 10 Days #30 tab 05/15/21 [Rx] Pregabalin [Lyrica] 25 mg PO BID 3 Days #6 capsule 05/15/21 [Rx] Follow up Appointment(s)/Referral(s): [facility] [NON-STAFF] - Aging,[place] [facility] [NON-STAFF] - None,Stated [Primary Care Provider] - 1-2 days Moe Hoskins MD [Medical Doctor] - 1 Week Activity/Diet/Wound Care/Special Instructions: Patient requires a wheelchair at discharge to assist with ADLs secondary to inability to use a cane or walker because of bilateral calcaneus fractures/non weight bearing status. Patient can self propel wheelchair. Discharge Disposition: TRANSFER TO SNF/ECF
[2021-05-15] MEDS: KETOROLAC 15 MG/ML 1 ML VIAL IVP PRN (12:07)
--- NOTE | 2021-05-15 13:24 | P.PN ---
Subjective Patient is doing well today. He is looking forward to be discharged to rehab today Objective - Vital Signs Vital signs: Vital Signs Temp 98.7 F 05/15/21 04:29 Pulse 71 05/15/21 04:29 Resp 18 05/15/21 04:29 BP 130/69 05/15/21 04:29 Pulse Ox 95 05/15/21 04:29 Intake & Output 05/14/21 05/15/21 05/15/21 18:59 06:59 18:59 Intake Total 600 Output Total 200 Balance -200 600 Intake: Oral 600 Output: Urine 200 Other: Voiding Method Urinal Urinal # Voids 2 - Exam General: The patient is awake and alert, in no distress Eye: there is normal conjunctiva bilaterally. Neck: The neck is supple, there is no JVD. Cardiovascular: Normal S1-S2, no S3-S4, no murmurs. Respiratory: Lungs clear to auscultation bilaterally Gastrointestinal: Abdomen is soft, nontender Musculoskeletal: There is no pedal edema. Neurological:. Speech is normal. Skin: Skin is warm and dry - Labs CBC & Chem 7: 05/12/21 18:50 05/12/21 18:50 Assessment and Plan Assessment: Patient history of hypertension, peripheral neuropathy, and alcoholism currently in a sober living house who presents to the emergency room after a fall. He was found to have bilateral calcaneal fractures. Laboratory analysis was essentially remarkable for glucose of 148. He was admitted to orthopedic surgery for medicine consult. Of note the patient received Vivitrol (a long-acting naltrexone injection) approximately 4 days ago. As suspected he has had a son optimal response to narcotic agents. This should be avoided going forward. Bilateral calcaneal fractures with intractable pain -Stop all opiate medications as patient received long-acting IM naltrexone injection -Continue with Toradol, increase Tylenol to 1000 mg as needed, add Lyrica -If this is not controlling pain will seek pain management consultation for possible nerve block versus ketamine use -Orthopedic management Hyperglycemia -A1c 5.6 - no further testing needed Hypertension -Lisinopril Discharge planning per primary team to [facility] facility today
[2021-05-15] MEDS ORDERED: KETOROLAC 30 MG/ML 1 ML VIAL IVP PRN (17:33)
[2021-05-15] MEDS: MELATONIN 5 MG TABLET PO SCH (20:19)
[2021-05-16] MEDS: PREGABALIN 25 MG CAP PO SCH (09:28)
[2021-05-16] MEDS: NICOTINE 21MG/24HR PATCH TRANSDERM SCH (09:28)
[2021-05-16] MEDS: lisinopriL 20 MG TAB PO SCH (09:36)
[2021-05-16] MEDS: ACETAMINOPHEN TAB 500 MG TAB PO PRN (09:39)
[2021-05-16 13:04] VITALS: BP 146/78; PULSE 64; RESP 17; TEMP 97.7
--- NOTE | 2021-05-16 14:28 | P.PN ---
Progress Note - Text Progress Note Date: 05/16/21 Addendum to Discharge summary: The patient's Vivitrol has been discontinued. He is no longer taking this medication and has no plan to continue in the near future. There is no [facility] appointment for this patient for follow up regarding Vivitrol. He may be discharged to [facility] today.
== END 2021-05-16 16:39 | DRG 563 ==
LOC: EC 15:36 → 4SSUR 17:58 → 1SOBS 05-13 05:39 → 5NMEDONC 05-13 17:35
PROVIDERS: ADMIT Orthopaedic Surgery; ATTEND Orthopaedic Surgery
DX: S92.001A Unspecified fracture of right calcaneus, initial encounter for closed fracture (principal); F17.203 Nicotine dependence unspecified, with withdrawal; S92.002A Unspecified fracture of left calcaneus, initial encounter for closed fracture; W17.89XA Other fall from one level to another, initial encounter; F32.9 Major depressive disorder, single episode, unspecified; F41.9 Anxiety disorder, unspecified; I10 Essential (primary) hypertension; Z79.899 Other long term (current) drug therapy; Z20.822 Contact with and (suspected) exposure to COVID-19; Z82.49 Family history of ischemic heart disease and other diseases of the circulatory system; Z91.14 Patient's other noncompliance with medication regimen; R73.9 Hyperglycemia, unspecified; F10.20 Alcohol dependence, uncomplicated
CPT/HCPCS: 80048; 83036; 85025; 85610; 85730; 87635; 96372; 99285